=== PATIENT | female | born 1935 | race Caucasian/White ===

== ENCOUNTER → 2023-11-09 09:36 | Outpatient (REF) | payer MEDICARE, SELFPAY ==
[2023-11-09 10:47] LABS: % Basophils 0.3 % (0-2); % Immature Granulocytes 0.3 % (0-0.5); % Lymphocytes 22.9 % (20.5-51.1); % Monocytes 9.4 % (1.7-9.3); % Neutrophils 65.1 % (42.2-75.2); Absolute Eosinophils 0.1 10^3/uL (0-0.7); Absolute Lymphocytes 1.5 10^3/uL (1.2-3.4); Absolute Monocytes 0.6 10^3/uL (0.1-0.6); Absolute Neutrophils 4.3 10^3/uL (1.4-6.5); Hematocrit 32.1 % (37.0-47.0); Hemoglobin 9.6 g/dL (12.0-16.0); Mean Corp Hgb Conc. 29.9 g/dL (33.0-37.0); Mean Corpuscular Hgb 19.6 pg (27.0-31.0); Mean Corpuscular Volume 65.6 fL (81.0-99.0); Nucleated Red Blood Cells % 0 %; Platelet Count 193 10^3/uL (130-400); Red Blood Cell Count 4.89 10^6/uL (4.20-5.40); White Blood Cell Count 6.6 10^3/uL (4.8-10.8)
[2023-11-09 11:52] LABS: ALT (SGPT) 13 U/L (0-35); AST (SGOT) 26 U/L (14-36); Albumin 3.7 g/dl (3.5-5.0); Alkaline Phosphatase 58 U/L (38-126); Blood Urea Nitrogen 26 mg/dl (7-17); Calcium 9.1 mg/dl (8.4-10.2); Carbon Dioxide 22 mmol/L (22-30); Chloride 109 mmol/L (98-107); Glucose 87 mg/dl (70-99); HDL Cholesterol 65 mg/dl; LDL Cholesterol, Calculated 37 mg/dl; Potassium 4.4 mmol/L (3.5-5.1); Sodium 137 mmol/L (135-145); Total Bilirubin 0.8 mg/dl (0.2-1.3); Total Cholesterol 118 mg/dl (50-199); Total Protein 6.5 g/dl (6.3-8.2); Triglyceride 83 mg/dl (10-149); Very Low Density Lipoprotein 16 mg/dl (0-30); eGFR > 60.00
[2023-11-09 11:56] LABS: TSH 4.14 uIU/ml (0.47-4.68)
== END ==
LOC: OLABWPC 09:36
PROVIDERS: ATTENDING PHYSICIAN Internal Medicine
DX: D64.9 Anemia, unspecified (principal); K21.9 Gastro-esophageal reflux disease without esophagitis; E78.5 Hyperlipidemia, unspecified; I50.20 Unspecified systolic (congestive) heart failure
CPT/HCPCS: 36415; 80053; 80061; 84443; 85025

== ENCOUNTER → 2023-12-14 10:16 | Outpatient (REF) | payer MEDICARE, SELFPAY ==
[2023-12-14 10:47] LABS: % Basophils 0.4 % (0-2); % Eosinophils 0.7 % (0-6); % Immature Granulocytes 0.5 % (0-0.5); % Lymphocytes 18.8 % (20.5-51.1); % Monocytes 9.2 % (1.7-9.3); % Neutrophils 70.4 % (42.2-75.2); Absolute Eosinophils 0.1 10^3/uL (0-0.7); Absolute Immature Granulocytes 0.1 10^3/uL (0-0.05); Absolute Lymphocytes 1.9 10^3/uL (1.2-3.4); Absolute Monocytes 0.9 10^3/uL (0.1-0.6); Absolute Neutrophils 7.1 10^3/uL (1.4-6.5); Hematocrit 27.8 % (37.0-47.0); Hemoglobin 8.6 g/dL (12.0-16.0); Mean Corp Hgb Conc. 30.9 g/dL (33.0-37.0); Mean Corpuscular Hgb 19.9 pg (27.0-31.0); Mean Corpuscular Volume 64.2 fL (81.0-99.0); Nucleated Red Blood Cells % 0 %; Platelet Count 245 10^3/uL (130-400); Red Blood Cell Count 4.33 10^6/uL (4.20-5.40); Red Cell Dist. Width 16.3 % (11.5-14.5); White Blood Cell Count 10.1 10^3/uL (4.8-10.8)
[2023-12-14 11:01] LABS: Blood Urea Nitrogen 22 mg/dl (7-17); Calcium 8.8 mg/dl (8.4-10.2); Carbon Dioxide 23 mmol/L (22-30); Chloride 106 mmol/L (98-107); Glucose 73 mg/dl (70-99); Potassium 3.3 mmol/L (3.5-5.1); Sodium 134 mmol/L (135-145); eGFR 36.64
== END ==
LOC: OLABWPC 10:16
PROVIDERS: ATTENDING PHYSICIAN Nurse Practitioner Family
DX: R19.7 Diarrhea, unspecified (principal)
CPT/HCPCS: 36415; 80048; 85025

== ENCOUNTER 2023-12-15 02:52 | Inpatient (IN) | payer MEDICARE, SELFPAY ==
[2023-12-14 23:05] VITALS: BMI 28.3
[2023-12-14 23:07] VITALS: BP 112/59
[2023-12-14 23:23] LABS: % Basophils 0.4 % (0-2); % Eosinophils 0.4 % (0-6); % Immature Granulocytes 0.4 % (0-0.5); % Lymphocytes 16.8 % (20.5-51.1); % Monocytes 8.1 % (1.7-9.3); % Neutrophils 73.9 % (42.2-75.2); Absolute Eosinophils 0.1 10^3/uL (0-0.7); Absolute Immature Granulocytes 0.1 10^3/uL (0-0.05); Absolute Lymphocytes 1.9 10^3/uL (1.2-3.4); Absolute Monocytes 0.9 10^3/uL (0.1-0.6); Absolute Neutrophils 8.3 10^3/uL (1.4-6.5); Hematocrit 29.9 % (37.0-47.0); Hemoglobin 9.7 g/dL (12.0-16.0); Mean Corp Hgb Conc. 32.4 g/dL (33.0-37.0); Mean Corpuscular Hgb 19.9 pg (27.0-31.0); Mean Corpuscular Volume 61.4 fL (81.0-99.0); Nucleated Red Blood Cells % 0 %; Platelet Count 298 10^3/uL (130-400); Red Blood Cell Count 4.87 10^6/uL (4.20-5.40); Red Cell Dist. Width 16.9 % (11.5-14.5); White Blood Cell Count 11.3 10^3/uL (4.8-10.8)
[2023-12-14 23:43] LABS: ALT (SGPT) 18 U/L (0-35); AST (SGOT) 29 U/L (14-36); Albumin 3.4 g/dl (3.5-5.0); Alkaline Phosphatase 91 U/L (38-126); Blood Urea Nitrogen 24 mg/dl (7-17); Calcium 9.1 mg/dl (8.4-10.2); Carbon Dioxide 23 mmol/L (22-30); Chloride 103 mmol/L (98-107); Estimated Creatinine Clearance 26 ml/min; Glucose 104 mg/dl (70-99); Lipase 82 U/L (23-300); Potassium 2.9 mmol/L (3.5-5.1); Sodium 133 mmol/L (135-145); Total Bilirubin 0.8 mg/dl (0.2-1.3); Total Protein 6.3 g/dl (6.3-8.2); eGFR 44.08
[2023-12-15] VITALS (15 sets, daily range): BP systolic 91–133; BP diastolic 39–89; PULSE 65–91; O2SAT 95; BMI 27.2
--- NOTE | 2023-12-15 00:39 | ED.GENMED ---
History of Present Illness
<GARTH Munroe - Last Filed: 12/15/23 05:25>
General
Chief Complaint: Abdominal Symptoms
Source: patient
Time Seen by Provider: 12/15/23 00:30
Travel History
Have you had any contact with someone who has COVID-19?: No
Do you have any symptoms of coronavirus? Fever > 100 degrees, chills, cough, shortness of breath, sore throat, loss of taste or smell, muscle aches, or headache?: No
History of Present Illness
History of Present Illness:
This is an 88 yo female PMH CHF, anemia presenting for diarrhea x 2 days. She arrived by EMS from [place]. She states diarrhea started in the morning before eating and has persisted. Last BM was the morning of 12/13. She denies nausea, vomiting,
hematochezia, chest pain, shortness of breath, fever, chills, dizziness, lightheadedness.
Past History
<GARTH Munroe - Last Filed: 12/15/23 05:25>
Past History
ED Past Medical History: Psychiatric (Depression)
ED Past Surgical History: Orthopedic and Urological; Negative Cardiac
Social History
Tobacco: Former smoker
Alcohol: None
Drug: None
Personal: Single
Living: alone
Employment: Retired
Family History
Family History: CAD; Negative Early CAD
Review of Systems
<GARTH Munroe - Last Filed: 12/15/23 05:25>
Review of Systems
Allergies reviewed?: Yes
EENT: Reports no symptoms
Respiratory: Reports no symptoms
Cardiac: Reports no symptoms
ABD/GI: Reports diarrhea
: Reports no symptoms
Phy Exam
<GARTH Munroe - Last Filed: 12/15/23 05:25>
General Physical Exam
General Presentation: well appearing
General Skin: warm and dry
General Habitus: normal
General Mental: alert
Cardiovascular Exam
Cardiovascular Exam: regular rate/rhythm, no edema, no gallop and no murmur
Pulmonary Exam
Pulmonary Exam: lungs clear
Gastrointestinal Exam
Gastrointestinal Exam: non tender, soft and non distended
Neurological Exam
Neurological Exam: alert and oriented x3
Psychiatric Exam
Psychiatric Exam: normal mood/affect
Course
<GARTH Munroe - Last Filed: 12/15/23 05:25>
Orders/Labs/Results
Orders:
Orders
12/14/23 23:09
Complete Blood Count/With Diff Urgent
Comprehensive Metabolic Panel Urgent
Lipase Urgent
Magnesium Urgent
12/15/23 00:58
STOOL [C difficile Antigen & Toxins] Urgent
ANDREW Source: Feces/Stool
Specimen Description:
Stool Culture Urgent
ANDREW Source: Feces/Stool
Specimen Description:
KCl 40 Meq/0.9%Sodchl 1000 ml [NSS with KCL 40 MEQ] 40 meq in 1,000 ml IV 250 mls/hr
Potassium Chloride [KCl] 40 meq PO NOW STA
12/15/23 01:00
Add On- LAB Urgent
Tests Added?: Mg level
Orthostatic VS- Treatment ONCE
12/15/23 02:15
Magnesium Sulfate 2 Gram/50 ml [Magnesium Sulfate] 2 gram in 50 ml IV NOW
12/15/23 02:23
Admit/Transfer Patient As Directed
Co-Sign Provider:
Level of Care: Inpatient admission
Assign to:: Medical/Surgical
Physician / Group: Ryan
Diagnosis: GERALD
Reason for Hospitalization: GERALD
Expected length of stay greater than two midnights?: Yes
ELOS- Estimated Length of Stay in days: 2
I certify the patient meets the requirements for IP care: Yes
12/15/23 02:24
Code Status As Directed
Resuscitation Status: Do not resuscitate
Based on pt advanced directive or healthcare POA form: Yes
12/15/23 02:26
DNR Bracelet Application ONCE
12/15/23 04:26
Acetaminophen [Tylenol] 650 mg PO Q4HPRN PRN
Lactated Ringers [Lr] 1,000 ml IV 100 mls/hr
Ondansetron Injectable [Zofran] 4 mg IV Q6HPRN PRN
12/15/23 04:26
Stool For WBC Routine
ANDREW Source: Feces/Stool
Specimen Description:
Activity As Directed
Activity Level: Ambulate
With Assistance
Bladder Scan As Directed
Follow Bladder Retention/Intermittent Cath Algorithm?: Yes
PRN if no void in __ hours: 6
Frequency: Per Retention Algorithm
If Bladder Scan Result >: 400
then:: Straight cath
I/O [Intake/ Output] As Directed
Frequency: Per unit guidelines
Orthostatic Vital Signs As Directed
Orthostatic VS Frequency: BID
Pneumatic Compression Sleeves As Directed
Type: Knee high
Straight Cath As Directed
Frequency: Per Retention Algorithm
Additional Instructions: straight cath as needed per acute urinary retention algorithm for 24 hrs
Additional Instructions: for bladder scan greater than 400 mL
Vital Signs As Directed
Frequency: Per unit guidelines
Weight As Directed
Frequency: Daily
Ot Eval And Treat Routine
PT Consult [Pt Eval And Treat] Routine
Activity Level: Ambulate
With Assistance
DX Deep Vein Thrombosis Video Routine
12/15/23 Breakfast
BRAT
Basic Metabolic Panel IN AM
Complete Blood Count/No Diff IN AM
12/15/23 07:00
Potassium Chloride [KCl] 40 meq PO ONCE@0700 ONE
12/15/23 08:00
Aspirin Chewable [Low Strength Aspirin] 81 mg PO DAILY
Carvedilol [Coreg] 12.5 mg PO DAILY
Venlafaxine Extended Release [Effexor Xr] 75 mg PO BID
12/15/23 22:00
Atorvastatin [Lipitor] 40 mg PO HS
Carvedilol [Coreg] 6.25 mg PO HS
Abnormal Lab Results
12/14/23
23:09
WBC 11.3 H 10^3/uL
(4.8-10.8)
Hgb 9.7 L g/dL
(12.0-16.0)
Hct 29.9 L %
(37.0-47.0)
MCV 61.4 L fL
(81.0-99.0)
MCH 19.9 L pg
(27.0-31.0)
MCHC 32.4 L g/dL
(33.0-37.0)
RDW 16.9 H %
(11.5-14.5)
Abs Immat Gran (auto) 0.1 H 10^3/uL
(0-0.05)
Absolute Neuts (auto) 8.3 H 10^3/uL
(1.4-6.5)
Absolute Monos (auto) 0.9 H 10^3/uL
(0.1-0.6)
Lymphocytes % 16.8 L %
(20.5-51.1)
Sodium 133 L mmol/L
(135-145)
Potassium 2.9 L mmol/L
(3.5-5.1)
BUN 24 H mg/dl
(7-17)
Creatinine 1.2 H mg/dL
(0.6-1.0)
Glucose 104 H mg/dl
(70-99)
Albumin 3.4 L g/dl
(3.5-5.0)
12/14/23 23:09
12/14/23 23:09
Vital Signs
Initial and Last Documented VS:
Initial Vital Signs
Temp
98.4 F
12/14/23 23:05
Last Documented Vital Signs
Temp Pulse Resp BP Pulse Ox
97.5 F 75 18 133/70 96
12/15/23 04:37 12/15/23 04:37 12/15/23 04:37 12/15/23 04:37 12/15/23 04:37
<Dolly Mehta, DO - Last Filed: 12/15/23 01:58>
Orders/Labs/Results
Orders:
Orders
12/14/23 23:09
Complete Blood Count/With Diff Urgent
Comprehensive Metabolic Panel Urgent
Lipase Urgent
Magnesium Urgent
12/15/23 00:58
STOOL [C difficile Antigen & Toxins] Urgent
ANDREW Source: Feces/Stool
Specimen Description:
Stool Culture Urgent
ANDREW Source: Feces/Stool
Specimen Description:
KCl 40 Meq/0.9%Sodchl 1000 ml [NSS with KCL 40 MEQ] 40 meq in 1,000 ml IV 250 mls/hr
Potassium Chloride [KCl] 40 meq PO NOW STA
12/15/23 01:00
Add On- LAB Urgent
Tests Added?: Mg level
Orthostatic VS- Treatment ONCE
12/15/23 02:15
Magnesium Sulfate 2 Gram/50 ml [Magnesium Sulfate] 2 gram in 50 ml IV NOW
12/15/23 02:23
Admit/Transfer Patient As Directed
Co-Sign Provider:
Level of Care: Inpatient admission
Assign to:: Medical/Surgical
Physician / Group: Ryan
Diagnosis: GERALD
Reason for Hospitalization: GERALD
Expected length of stay greater than two midnights?: Yes
ELOS- Estimated Length of Stay in days: 2
I certify the patient meets the requirements for IP care: Yes
12/15/23 02:24
Code Status As Directed
Resuscitation Status: Do not resuscitate
Based on pt advanced directive or healthcare POA form: Yes
12/15/23 02:26
DNR Bracelet Application ONCE
12/15/23 04:26
Acetaminophen [Tylenol] 650 mg PO Q4HPRN PRN
Lactated Ringers [Lr] 1,000 ml IV 100 mls/hr
Ondansetron Injectable [Zofran] 4 mg IV Q6HPRN PRN
12/15/23 04:26
Stool For WBC Routine
ANDREW Source: Feces/Stool
Specimen Description:
Activity As Directed
Activity Level: Ambulate
With Assistance
Bladder Scan As Directed
Follow Bladder Retention/Intermittent Cath Algorithm?: Yes
PRN if no void in __ hours: 6
Frequency: Per Retention Algorithm
If Bladder Scan Result >: 400
then:: Straight cath
I/O [Intake/ Output] As Directed
Frequency: Per unit guidelines
Orthostatic Vital Signs As Directed
Orthostatic VS Frequency: BID
Pneumatic Compression Sleeves As Directed
Type: Knee high
Straight Cath As Directed
Frequency: Per Retention Algorithm
Additional Instructions: straight cath as needed per acute urinary retention algorithm for 24 hrs
Additional Instructions: for bladder scan greater than 400 mL
Vital Signs As Directed
Frequency: Per unit guidelines
Weight As Directed
Frequency: Daily
Ot Eval And Treat Routine
PT Consult [Pt Eval And Treat] Routine
Activity Level: Ambulate
With Assistance
DX Deep Vein Thrombosis Video Routine
12/15/23 Breakfast
BRAT
Basic Metabolic Panel IN AM
Complete Blood Count/No Diff IN AM
12/15/23 07:00
Potassium Chloride [KCl] 40 meq PO ONCE@0700 ONE
12/15/23 08:00
Aspirin Chewable [Low Strength Aspirin] 81 mg PO DAILY
Carvedilol [Coreg] 12.5 mg PO DAILY
Venlafaxine Extended Release [Effexor Xr] 75 mg PO BID
12/15/23 22:00
Atorvastatin [Lipitor] 40 mg PO HS
Carvedilol [Coreg] 6.25 mg PO HS
Abnormal Lab Results
12/14/23
23:09
WBC 11.3 H 10^3/uL
(4.8-10.8)
Hgb 9.7 L g/dL
(12.0-16.0)
Hct 29.9 L %
(37.0-47.0)
MCV 61.4 L fL
(81.0-99.0)
MCH 19.9 L pg
(27.0-31.0)
MCHC 32.4 L g/dL
(33.0-37.0)
RDW 16.9 H %
(11.5-14.5)
Abs Immat Gran (auto) 0.1 H 10^3/uL
(0-0.05)
Absolute Neuts (auto) 8.3 H 10^3/uL
(1.4-6.5)
Absolute Monos (auto) 0.9 H 10^3/uL
(0.1-0.6)
Lymphocytes % 16.8 L %
(20.5-51.1)
Sodium 133 L mmol/L
(135-145)
Potassium 2.9 L mmol/L
(3.5-5.1)
BUN 24 H mg/dl
(7-17)
Creatinine 1.2 H mg/dL
(0.6-1.0)
Glucose 104 H mg/dl
(70-99)
Albumin 3.4 L g/dl
(3.5-5.0)
05/08/24 23:09
12/14/23 23:09
Vital Signs
Initial and Last Documented VS:
Initial Vital Signs
Temp
98.4 F
12/14/23 23:05
Last Documented Vital Signs
Temp Pulse Resp BP Pulse Ox
97.5 F 75 18 133/70 96
12/15/23 04:37 12/15/23 04:37 12/15/23 04:37 12/15/23 04:37 12/15/23 04:37
<GARTH Munroe - Last Filed: 12/15/23 05:25>
*Critical Care Note
Total Time (30-74mins, 75-104mins- exclusive of procedures): Not Applicable
ED Attending Note
<GARTH Munroe - Last Filed: 12/15/23 05:25>
-
Portions of this chart may have been created with voice recognition software.� Occasional wrong word or��sound alike� substitutions may have occurred due to the inherent limitations of voice recognition software.
<Dolly Mehta DO - Last Filed: 12/15/23 01:58>
ED Attending Note
Patient seen and examined by attending physician: Yes
I performed the substantive portion of visit, reviewed & personally made and approve the management plan that is documented in note by myself or ELY.: Yes
I performed a history and physical exam of patient and discussed management with resident, I reviewed resident's note and agree with documented findings and plan of care.: Yes
ED Attending Note:
This is an 88-year-old woman who resides in assisted living facility at [facility]. 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
She is sent to the ED with [facility] staff due to onset of nonbloody diarrhea 2 days ago with reported 5 pound weight loss in 2 days along with hypotension with blood pressure recorded at 85/47 and blood work from yesterday morning showing
acute kidney injury with creatinine of 1.4. Previously 0.8 1-month prior.
Patient denies abdominal pain, denies dizziness nor lightheadedness, denies fever nor chills. No known close contacts with similar symptoms. She denies recent antibiotic use nor recent travel.
She denies history of similar episodes in the past. She states her appetite has been fair to good. No nausea nor vomiting.
GENERAL: 88-year-old woman appears her stated age, bright and alert, pleasant, appears in no acute distress.
EYE: pupils equal and reactive. anicteric
NECK: Supple, nontender, no meningismus, no significant adenopathy.
ENT: posterior pharynx is clear, oral mucosa is moderately dry. No rhinorrhea.
CARDIAC: Regular rate and rhythm. no murmur.
LUNGS: Clear breath sounds bilaterally, no acute respiratory distress, no wheezes/rales/rhonchi
ABDOMEN: Soft, nondistended, without focal tenderness, no r/g, no cvat. normoactive BS.
NEUROLOGICAL: Alert and oriented x3, no focal neuro deficits.
SKIN: Warm and dry, normal color, skin intact. Fair turgor. No rash.
MUSCULOSKELETAL: No C/C/E. peripheral pulses are full and equal b/l. No palpable tenderness.
PSYCH: Normal and appropriate interaction.
Patient presents with 2-day history of nonbloody diarrhea. Clinically appears moderately dehydrated with borderline low blood pressure.
Labs show mildly elevated white blood cell count of 11.3, mild but stable anemia.
Significant dehydration with acute kidney injury with creatinine of 1.2, has improved mildly from outpatient labs this morning of 1.4 but markedly elevated compared to baseline creatinine of 0.8.
She also noted to have significant hypokalemia with potassium of 2.9 which has trended down from this morning.
She denies dizziness nor lightheadedness but half-way reports blood pressure of 85 systolic. Will check orthostatic vital signs.
Will initiate IV fluids along with IV potassium for repletion along with oral potassium repletion.
If diarrhea recurs we will check stool cultures and stool for C. difficile.
Will check magnesium level.
Abdominal exam is soft and benign. And she continues to deny abdominal pain. Nothing to suggest ischemic bowel nor significant colitis.
Due to acute kidney injury, hypokalemia, acute weight loss and significant dehydration patient will require acute hospitalization for fluid and electrolyte management.
Discharge Plan
Departure
Patient Disposition: Admit
Date of Disposition: 12/15/23
Time of Disposition: 01:57
Admit to: Med/Surg
Admit to doctor: Ryan
Presentation/result/management discussed w/ accepting MD/DO: Hospitalist
Condition: Fair
Discharge Problem:
Acute diarrhea, acute kidney injury due to dehydration, Acute hypokalemia
Interventions
Interventions:
*Risk Screen - Suicide Last Done: 12/15/23 04:42
*General Assessment Last Done: 12/14/23 23:07
*Neglect/Abuse Screening Last Done: 12/14/23 23:07
ED- Fall Risk Assessment Last Done: 12/14/23 23:27
*ED COVID-19 Vaccine History Last Done: 12/15/23 04:42
*Nursing Disposition Last Done: 12/15/23 04:13
HE-Wruzvm-Bzhuwarrxu Assessment Last Done: 12/14/23 23:27
Discharge Date and Time
Discharge Date/Time: 12/15/23 04:14
[2023-12-15] MEDS: KCL 40 MEQ PO ×2 (01:05→06:05)
[2023-12-15] MEDS: NSS with KCL 40 MEQ 1000 IV (01:16)
[2023-12-15 01:31] LABS: Magnesium 1.6 mg/dl (1.6-2.3)
--- NOTE | 2023-12-15 02:27 | HPS.HSE ---
Family Physician
-
Family Physician: Sherie Jefferson
Chief Complaint
-
Abnormal Labs, Low BP, Loose Stools
History of Present Illness
Patient is an 88y F with PMH significant for ASCVD, chronic anemia and mild dementia who presents to ED for evaluation of weight loss, hypotension and abnormal labs. History obtained from patient and DE report. Per DE record, patient has had
diarrhea with multiple loose stools for the past several days. She has lost 5 lbs in that time and her BP this evening was reportedly in the 80s systolic. Patient had labs done earlier today as an outpatient and these revealed hypokalemia and GERALD.
Patient was sent to the ED for further evaluation.
Patient is currently resting comfortably. She denies any abdominal pain, N/V, etc. She states that she had diarrhea - but notes that it has been better for the past 'couple of days'. Her last BM was reportedly in the AM on 12/13.
Medical History
Past Medical History
Past Medical History: Reports Other
Additional Past Medical History:
ASCVD
Chronic HFrEF
Nephrolithiasis
Thalassemia Minor
Chronic Anemia
Senile Dementia
Past Surgical History: Reports Other
Additional Past Surgical History:
Bilateral RACHEAL
Cholecystectomy
Social History
Tobacco: Non-smoker
Alcohol: None
Drug: None
Living: Assisted Living
Family History
Family History: Not pertinent
Allergies / Home Medications
Allergies reflects when Allergies were last updated in [employer].
Home Medications with original date entered in [employer]
Allergy/Medication List:
Allergies
Allergy/AdvReac Type Severity Reaction Status Date / Time
amoxicillin [From Augmentin] Allergy Unknown Verified 04/15/20 11:52
clavulanic acid Allergy Unknown Verified 04/15/20 11:52
[From Augmentin]
Iodine and Iodide Containing Allergy Unknown Verified 09/08/20 11:52
Produc
Home Medications
venlafaxine 75 mg capsule,extended release 24 hr 75 mg PO BID Mental Health/Anxiety 01/16/19
pantoprazole 40 mg tablet,delayed release 40 mg PO HS Gastrointestinal issue 04/11/20
aspirin 81 mg chewable tablet 81 mg PO DAILY 04/19/20
acetaminophen 500 mg tablet 1,000 mg PO Q8H PRN mild pain/temp>100 12/14/23
atorvastatin 40 mg tablet 40 mg PO HS 12/14/23
calcium carbonate 500 mg PO Q6H PRN nausea 12/14/23
carvedilol 6.25 mg tablet 6.25 mg PO HS 12/14/23
carvedilol 6.25 mg tablet 12.5 mg PO DAILY 12/14/23
cyanocobalamin (vitamin B-12) 500 mcg tablet 1,000 mcg PO DAILY 12/14/23
dextran 70-hypromellose eye drops in a dropperette (Artificial Tears (PF) drops in a dropperette) 1 drp BOTH EYES BID PRN dry eyes 12/14/23
docusate sodium 100 mg capsule 100 mg PO Q12H PRN constipation 12/14/23
ferrous sulfate 325 mg (65 mg iron) tablet 325 mg PO DAILY 12/14/23
guaifenesin 600 mg tablet, extended release 12 hr (Mucinex) 600 mg PO Q12H PRN congestion 12/14/23
melatonin 3 mg tablet 3 mg PO HS 12/14/23
Review of Systems
-
History Source: Patient
A 12 point ROS was completed and negative except as noted: Yes
Constitutional: Denies Fever or Chills
Respiratory: Denies Cough or Trouble Breathing
Cardiac: Denies Chest Pain or Palpitations
Abdomen/GI: Reports Diarrhea; Denies Abdominal Pain, Nausea, Vomiting or Anorexia
: Denies Dysuria, Frequency or Flank Pain
Musculoskeletal: Reports Edema
Neurological: Denies Dizzy or Headache
Physical Exam
Vital Signs
Vital Signs
Temp Pulse Resp BP Pulse Ox
98.4 F 74 22 120/54 94
12/14/23 23:05 12/15/23 02:01 12/15/23 02:01 12/15/23 02:01 12/15/23 02:01
Physical Exam
General: Other (88y F in no acute distress.)
HEENT: PERRLA and Other (Dry MM.)
Respiratory: Clear; No Wheezes, Rales or Rhonchi
Cardiac: S1/S2 and Regular Rhythm; No Murmur
GI: Soft, Non Tender, Non Distended and Normal Bowel Sounds
Musculoskeletal: No Clubbing, No Cyanosis and Other (1+ pitting edema at the ankles bilaterally.)
Neuro: Awake and Alert
Laboratory Results
-
12/14/23 23:09
12/14/23 23:09
Laboratory Results
Total Bilirubin 0.8 mg/dl (0.2-1.3) 12/14/23 23:09
AST 29 U/L (14-36) 12/14/23 23:09
ALT 18 U/L (0-35) 12/14/23 23:09
Alkaline Phosphatase 91 U/L (38-126) 12/14/23 23:09
Lipase 82 U/L (23-300) 12/14/23 23:09
Impression/Plan
-
A/P: Patient is an 88y F with PMH significant for ASCVD, dementia and anemia who presents to ED from assisted living this evening for evaluation of hypotension, diarrhea and abnormal labs.
GERALD
Hypokalemia
Hypotension
- Admit for further evaluation and treatment.
- Suspect that this is secondary to recent GI losses, BP meds, etc.
- Holding parameters for carvedilol.
- IVF support overnight including potassium replacement.
- IV magnesium for goal Mg > 2.
- SCr = 1.2 (1.4 on outpatient labs this AM) with known baseline of 0.8.
- Follow for improvement.
Diarrhea
- Patient with multiple loose stools 6 - 12/13.
- She states that this has improved since and she has not had continued diarrhea throughout the day.
- No stools here thus far.
- No recent abx use.
- Check stool studies (if possible).
- Observe off of abx for now.
- Exam is entirely benign at present.
ASCVD
Chronic HFrEF
- Stable. Prior history of CAD treated medically.
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
- Not maintained on diuretic therapy.
- Follow I/Os, daily weights, etc.
- Continue current CV regimen including ASA, statin, etc.
Chronic Microcytic Anemia
Thalassemia minor
- Stable. Hgb is at / near known baseline.
- No reports of active / noted blood loss.
- Microcytosis c/w thalassemia.
- Follow for any changes in H&H.
Senile Dementia
- Stable. Follow for any new / worsening symptoms during acute hospital stay.
- Continue venlafaxine.
DVT Prophylaxis: SCDs
Code Status: DNR
[2023-12-15] MEDS: MAGNESIUM SULFATE 50 IV (03:32)
--- NOTE | 2023-12-15 04:45 | PTCARENOTE ---
Patient admitted from ED. Patient AAO x2, disoriented to time and can be forgetful at times. Bed alarm is activated. Patient on RA, in no acute distress. Patient oriented to room and call du is within reach.
[2023-12-15] MEDS: LR 1000 IV ×2 (06:23→14:36)
[2023-12-15 07:11] LABS: Hematocrit 26.7 % (37.0-47.0); Hemoglobin 8.5 g/dL (12.0-16.0); Mean Corp Hgb Conc. 31.8 g/dL (33.0-37.0); Mean Corpuscular Volume 62.8 fL (81.0-99.0); Platelet Count 260 10^3/uL (130-400); Red Blood Cell Count 4.25 10^6/uL (4.20-5.40); Red Cell Dist. Width 16.7 % (11.5-14.5); White Blood Cell Count 11.4 10^3/uL (4.8-10.8)
[2023-12-15 07:34] LABS: Blood Urea Nitrogen 22 mg/dl (7-17); Calcium 8.8 mg/dl (8.4-10.2); Carbon Dioxide 20 mmol/L (22-30); Chloride 111 mmol/L (98-107); Estimated Creatinine Clearance 31 ml/min; Glucose 84 mg/dl (70-99); Potassium 4.4 mmol/L (3.5-5.1); Sodium 138 mmol/L (135-145); eGFR 54.87
[2023-12-15] MEDS: LOW STRENGTH ASPIRIN 81 MG PO (07:53)
[2023-12-15] MEDS: COREG 12.5 MG PO (07:53)
[2023-12-15] MEDS: EFFEXOR XR 75 MG PO ×2 (07:53→21:30)
--- NOTE | 2023-12-15 10:59 | W.PN.UPDATE ---
Update Note
Progress Note Update
Seen and examined independent of overnight physician
Resting in bed comfortably. Denies any abdominal pain or diarrhea. Denies any nausea or vomiting.
General: Resting in bed
HEENT: PERRLA and Other (Dry MM.)
Respiratory: Clear; No Wheezes, Rales or Rhonchi
Cardiac: S1/S2 and Regular Rhythm; No Murmur
GI: Soft, Non Tender, Non Distended and Normal Bowel Sounds
Musculoskeletal: No Clubbing, No Cyanosis and Other (1+ pitting edema at the ankles bilaterally.)
Neuro: Awake and Alert
A/P: Patient is an 88y F with PMH significant for ASCVD, dementia and anemia who presents to ED from assisted living this evening for evaluation of hypotension, diarrhea and abnormal labs.
GERALD
Hypokalemia
Hypotension
Mild hypovolemic hyponatremia
- Suspect that this is secondary to recent GI losses, BP meds, etc.
- Holding parameters for carvedilol.
- IVF support overnight including potassium replacement.
- IV magnesium for goal Mg > 2.
- Creatinine of 1 compared to 1.4 yesterday morning. DC fluids later today.
- Follow for improvement. Potassium stabilized. Sodium stabilized.
Diarrhea
- Patient with multiple loose stools 5/6 - 12/13.
- She states that this has improved since and she has not had continued diarrhea throughout the day.
- No stools here thus far.
- No recent abx use.
- Check stool studies (if possible).
- Observe off of abx for now.
ASCVD
Chronic HFrEF
- Stable. Prior history of CAD treated medically.
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
- Not maintained on diuretic therapy.
- Follow I/Os, daily weights, etc.
- Continue current CV regimen including ASA, statin, etc.
Chronic Microcytic Anemia
Thalassemia minor
- Stable. Hgb is at / near known baseline.
- No reports of active / noted blood loss.
- Microcytosis c/w thalassemia.
- Follow for any changes in H&H.
Senile Dementia
- Stable. Follow for any new / worsening symptoms during acute hospital stay.
- Continue venlafaxine.
DVT Prophylaxis: SCDs
Code Status: DNR
--- NOTE | 2023-12-15 14:47 | CM ---
Patient seen bedside, chart reviewed and IA from Kailyn at [facility] unit.
Patient lives at [facility], has some confusion and not a good historian.
Patient able to ambulate independently but mostly stays in bed by choice.
patient eats her meals in her room.
Patient can wash/shower herself but has been resisting help.
Not currently getting therapy.
PCP: Dr Jefferson
Pharmacy: [facility]
Please contact Kailyn at [facility] to clear for return P# [phone]
Plan: Back to [facility] whens table
report# [phone]
[2023-12-15] MEDS: COREG 6.25 MG PO (21:30)
[2023-12-15] MEDS: LIPITOR 40 MG PO (21:30)
[2023-12-16 06:00] VITALS: BMI 27.7
[2023-12-16 07:39] VITALS: BP 121/65; BP 124/64; BP 141/67; PULSE 68; PULSE 69; PULSE 78
[2023-12-16 07:40] VITALS: BP 121/65
[2023-12-16] MEDS: EFFEXOR XR 75 MG PO ×2 (09:17→21:13)
[2023-12-16] MEDS: COREG 12.5 MG PO (09:17)
[2023-12-16] MEDS: LOW STRENGTH ASPIRIN 81 MG PO (09:17)
[2023-12-16 09:39] LABS: % Basophils 0.3 % (0-2); % Eosinophils 1.2 % (0-6); % Immature Granulocytes 0.5 % (0-0.5); % Monocytes 9.6 % (1.7-9.3); % Neutrophils 70.4 % (42.2-75.2); Absolute Eosinophils 0.1 10^3/uL (0-0.7); Absolute Lymphocytes 1.1 10^3/uL (1.2-3.4); Absolute Monocytes 0.6 10^3/uL (0.1-0.6); Absolute Neutrophils 4.3 10^3/uL (1.4-6.5); Hematocrit 25.3 % (37.0-47.0); Hemoglobin 7.8 g/dL (12.0-16.0); Mean Corp Hgb Conc. 30.8 g/dL (33.0-37.0); Mean Corpuscular Hgb 19.5 pg (27.0-31.0); Mean Corpuscular Volume 63.4 fL (81.0-99.0); Nucleated Red Blood Cells % 0 %; Platelet Count 233 10^3/uL (130-400); Red Blood Cell Count 3.99 10^6/uL (4.20-5.40); Red Cell Dist. Width 16.6 % (11.5-14.5); White Blood Cell Count 6.1 10^3/uL (4.8-10.8)
[2023-12-16 09:50] LABS: Blood Urea Nitrogen 14 mg/dl (7-17); Calcium 8.3 mg/dl (8.4-10.2); Carbon Dioxide 24 mmol/L (22-30); Chloride 113 mmol/L (98-107); Estimated Creatinine Clearance 44 ml/min; Glucose 73 mg/dl (70-99); Potassium 4.5 mmol/L (3.5-5.1); Sodium 137 mmol/L (135-145); eGFR > 60.00
--- NOTE | 2023-12-16 12:00 | W.PN.HOSP.TC ---
Addendum entered and electronically signed by Chaitanya Yoon MD 12/16/23 12:18:
Discussed with son over the phone in detail. Updated hospital course so far.
Original Note:
Today's Communication/Plan
-
DC fluids
Monitor for diet tolerance
Upgrade diet
Trend CBC
Check anemia panel
Assessment / Plan
Assessment / Plan
GERALD
Hypokalemia
Hypotension
Mild hypovolemic hyponatremia
- Suspect that this is secondary to recent GI losses, BP meds, etc.
- Holding parameters for carvedilol.
- IV magnesium for goal Mg > 2.
- Creatinine at baseline. Stop IVF.
- Follow for improvement. Potassium stabilized. Sodium stabilized.
Diarrhea likely viral
- Patient with multiple loose stools 12/11 - 12/13. Resolved.
- She states that this has improved since and she has not had continued diarrhea throughout the day.
- 1 solid bm earlier today.
- No recent abx use.
- Observe off of abx for now.
ASCVD
Chronic HFrEF
- Stable. Prior history of CAD treated medically.
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
- Not maintained on diuretic therapy.
- Follow I/Os, daily weights, etc.
- Continue current CV regimen including ASA, statin, etc.
Chronic Microcytic Anemia
Thalassemia minor
- Mild drop in hemoglobin secondary to dilution from IV fluids.
- No reports of active / noted blood loss.
- Microcytosis c/w thalassemia.
- Follow for any changes in H&H. Check anemia panel.
Senile Dementia
- Stable. Follow for any new / worsening symptoms during acute hospital stay.
- Continue venlafaxine.
DVT Prophylaxis: SCDs
Code Status: DNR
PT/OT-home health.
Called son to update. No Response. left voicemail.
Anticipated Discharge: Within 24 hours
Subjective/Interval History
-
Date of Service: December 16, 2023
states had 1 solid bm earlier today
no loose bm yesterday
tolerating diet
no nausea or vomiting or abd pain
Objective Data
-
Labs:
Laboratory Results
12/16/23
08:46
WBC 6.1
Hgb 7.8 L
Hct 25.3 L
Plt Count 233
Sodium 137
Potassium 4.5
Chloride 113 H
Carbon Dioxide 24
BUN 14
Creatinine 0.7
Glucose 73
Calcium 8.3 L
Vital Signs:
Vital Signs
Temp Pulse Resp BP Pulse Ox
97.7 F 68 17 121/65 98
12/16/23 07:40 12/16/23 09:17 12/16/23 07:40 12/16/23 09:17 12/16/23 08:18
I&O
12/15/23 12/16/23 12/17/23
06:59 06:59 06:59
Intake Total 240 / 240 1140 / 1140
Balance 240 / 240 1140 / 1140
Physical Exam
-
General: Well Developed and No Apparent Distress
HEENT: Normocephalic, Atraumatic and Moist Mucous Membranes
Respiratory: Clear to Auscultation
Cardiac: Regular Rhythm and S1/S2; Negative Murmur, Rub or Gallop
GI: Soft, Nontender, Nondistended and Normal Bowel Sounds; Negative Organomegaly
Rectal: Deferred by Provider
Musculoskeletal: No Clubbing, No Cyanosis and No Edema
Skin: Negative Rash
Neuro: Awake, No Motor Deficits and Nonfocal/Grossly Intact
Psych: Calm
Data Reviewed
-
Total Time Spent with Patient (in minutes): 55
[2023-12-16 12:48] VITALS: BP 141/59; PULSE 64; O2SAT 94
[2023-12-16 12:48] LABS: Iron 59 ug/dl (37-170)
[2023-12-16 12:57] LABS: Percent Saturation 49 % (20-50); Total Iron Binding Capacity 120 ug/dl (265-497)
[2023-12-16 14:12] LABS: Folate 4.5 ng/ml (2.76-20); Vitamin B12 > 1000 pg/ml (239-931)
[2023-12-16 15:52] VITALS: BP 145/62
[2023-12-16 20:09] VITALS: BP 102/55; BP 120/57; BP 140/81; PULSE 70; PULSE 76; PULSE 88
[2023-12-16] MEDS: LIPITOR 40 MG PO (21:13)
[2023-12-16] MEDS: MELATONIN 3 MG PO (21:13)
[2023-12-16] MEDS: COREG 6.25 MG PO (21:13)
[2023-12-16 23:54] VITALS: BP 103/54
[2023-12-17 05:52] VITALS: BMI 27.6
[2023-12-17 07:00] VITALS: BP 114/67; BP 125/54; BP 130/65; PULSE 63; PULSE 77; PULSE 95
[2023-12-17 07:59] VITALS: BP 125/54
[2023-12-17 08:21] LABS: % Basophils 0.3 % (0-2); % Immature Granulocytes 0.5 % (0-0.5); % Lymphocytes 20.7 % (20.5-51.1); % Monocytes 9.7 % (1.7-9.3); % Neutrophils 67.8 % (42.2-75.2); Absolute Eosinophils 0.1 10^3/uL (0-0.7); Absolute Lymphocytes 1.2 10^3/uL (1.2-3.4); Absolute Monocytes 0.6 10^3/uL (0.1-0.6); Hemoglobin 8.1 g/dL (12.0-16.0); Mean Corp Hgb Conc. 31.2 g/dL (33.0-37.0); Mean Corpuscular Hgb 19.8 pg (27.0-31.0); Mean Corpuscular Volume 63.6 fL (81.0-99.0); Nucleated Red Blood Cells % 0 %; Platelet Count 234 10^3/uL (130-400); Red Blood Cell Count 4.09 10^6/uL (4.20-5.40); Red Cell Dist. Width 16.5 % (11.5-14.5); White Blood Cell Count 5.9 10^3/uL (4.8-10.8)
[2023-12-17 08:52] LABS: Blood Urea Nitrogen 10 mg/dl (7-17); Calcium 8.5 mg/dl (8.4-10.2); Carbon Dioxide 21 mmol/L (22-30); Chloride 112 mmol/L (98-107); Estimated Creatinine Clearance 52 ml/min; Glucose 75 mg/dl (70-99); Potassium 4.1 mmol/L (3.5-5.1); Sodium 139 mmol/L (135-145); eGFR > 60.00
[2023-12-17] MEDS: LOW STRENGTH ASPIRIN 81 MG PO (09:03)
[2023-12-17] MEDS: EFFEXOR XR 75 MG PO ×2 (09:03→21:48)
[2023-12-17] MEDS: VITAMIN B-12 1000 MCG PO (09:04)
[2023-12-17] MEDS: PROTONIX 40 MG PO (09:04)
[2023-12-17] MEDS: FOLVITE 1 MG PO (09:04)
[2023-12-17] MEDS: COREG 12.5 MG PO (09:04)
--- NOTE | 2023-12-17 12:04 | W.PN.HOSP.TC ---
Today's Communication/Plan
-
Trend hemoglobin overnight
Monitor for any luminal bleeding-none noted so far
Monitor diet tolerance
Start Dispo planning
Assessment / Plan
Assessment / Plan
GERALD
Hypokalemia
Hypotension
Mild hypovolemic hyponatremia
- Suspect that this is secondary to recent GI losses, BP meds, etc.
- Holding parameters for carvedilol.
- Creatinine at baseline. Stop IVF.
- Follow for improvement. Potassium stabilized. Sodium stabilized.
Diarrhea likely viral
- Patient with multiple loose stools 12/11 - 12/13. Resolved.
- awaiting for stools sample
- No recent abx use.
- Observe off of abx for now.
ASCVD
Chronic HFrEF
- Stable. Prior history of CAD treated medically.
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
- Not maintained on diuretic therapy.
- Follow I/Os, daily weights, etc.
- Continue current CV regimen including ASA, statin, etc.
Chronic Microcytic Anemia
Thalassemia minor
- Mild drop in hemoglobin secondary to dilution from IV fluids.
- No reports of active / noted blood loss.
- Microcytosis c/w thalassemia.
- Follow for any changes in H&H. Appropriate iron stores. Start folic acid. Trend hemoglobin
Senile Dementia
- Stable. Follow for any new / worsening symptoms during acute hospital stay.
- Continue venlafaxine.
DVT Prophylaxis: SCDs
Code Status: DNR
PT/OT-home health.
Anticipated Discharge: Within 24 hours
Subjective/Interval History
-
Date of Service: December 17, 2023
About to eat breakfast
no nausea or vomiting
Objective Data
-
Labs:
Laboratory Results
12/17/23
06:31
WBC 5.9
Hgb 8.1 L
Hct 26.0 L
Plt Count 234
Sodium 139
Potassium 4.1
Chloride 112 H
Carbon Dioxide 21 L
BUN 10
Creatinine 0.6
Glucose 75
Calcium 8.5
Vital Signs:
Vital Signs
Temp Pulse Resp BP Pulse Ox
98 F 61 18 125/54 95
12/17/23 07:59 12/17/23 09:04 12/17/23 07:59 12/17/23 09:04 12/17/23 08:13
I&O
12/16/23 12/17/23 12/18/23
06:59 06:59 06:59
Intake Total 1140 / 1140 660 / 660
Balance 1140 / 1140 660 / 660
Physical Exam
-
General: Well Developed, No Apparent Distress and Other (looks pale)
HEENT: Normocephalic, Atraumatic and Moist Mucous Membranes
Respiratory: Clear to Auscultation
Cardiac: Regular Rhythm and S1/S2; Negative Murmur, Rub or Gallop
GI: Soft, Nontender, Nondistended and Normal Bowel Sounds; Negative Organomegaly
Rectal: Deferred by Provider
Musculoskeletal: No Clubbing, No Cyanosis and No Edema
Skin: Negative Rash
Neuro: Awake, No Motor Deficits and Nonfocal/Grossly Intact
Psych: Calm
[2023-12-17 15:45] VITALS: BP 123/55
[2023-12-17] MEDS: LIPITOR 40 MG PO (21:48)
[2023-12-17] MEDS: MELATONIN 3 MG PO (21:48)
[2023-12-17] MEDS: COREG 6.25 MG PO (21:51)
[2023-12-17 23:46] VITALS: BP 117/80
[2023-12-18 06:44] LABS: % Basophils 0.5 % (0-2); % Eosinophils 0.9 % (0-6); % Immature Granulocytes 0.4 % (0-0.5); % Lymphocytes 17.4 % (20.5-51.1); % Monocytes 10.2 % (1.7-9.3); % Neutrophils 70.6 % (42.2-75.2); Absolute Eosinophils 0.1 10^3/uL (0-0.7); Absolute Lymphocytes 1.3 10^3/uL (1.2-3.4); Absolute Monocytes 0.8 10^3/uL (0.1-0.6); Absolute Neutrophils 5.3 10^3/uL (1.4-6.5); Hematocrit 26.1 % (37.0-47.0); Hemoglobin 8.3 g/dL (12.0-16.0); Mean Corp Hgb Conc. 31.8 g/dL (33.0-37.0); Mean Corpuscular Volume 62.7 fL (81.0-99.0); Mean Platelet Volume 11.5 fL (7.4-10.4); Nucleated Red Blood Cells % 0 %; Platelet Count 237 10^3/uL (130-400); Red Blood Cell Count 4.16 10^6/uL (4.20-5.40); Red Cell Dist. Width 16.8 % (11.5-14.5); White Blood Cell Count 7.5 10^3/uL (4.8-10.8)
[2023-12-18 07:26] VITALS: BP 122/61; BP 124/52; BP 138/67; PULSE 68; PULSE 71; PULSE 79
[2023-12-18 07:27] VITALS: BP 124/52
[2023-12-18] MEDS: LOW STRENGTH ASPIRIN 81 MG PO (10:19)
[2023-12-18] MEDS: EFFEXOR XR 75 MG PO ×2 (10:19→20:15)
[2023-12-18] MEDS: FOLVITE 1 MG PO (10:20)
[2023-12-18] MEDS: VITAMIN B-12 1000 MCG PO (10:20)
[2023-12-18] MEDS: PROTONIX 40 MG PO (10:20)
[2023-12-18] MEDS: COREG 12.5 MG PO (10:20)
--- NOTE | 2023-12-18 11:37 | W.PN.HOSP.TC ---
Today's Communication/Plan
-
dc to [facility]
Assessment / Plan
Assessment / Plan
GERALD
Hypokalemia
Hypotension
Mild hypovolemic hyponatremia
- Suspect that this is secondary to recent GI losses, BP meds, etc.
- Holding parameters for carvedilol.
- Creatinine at baseline. Stop IVF.
- Follow for improvement. Potassium stabilized. Sodium stabilized. Cr stabilized.
Diarrhea likely viral
- Patient with multiple loose stools 12/11 - 12/13. Resolved.
-Loose bowel movement resolved and now with solid BMs.
- No recent abx use.
- Observe off of abx for now.
ASCVD
Chronic HFrEF
- Stable. Prior history of CAD treated medically.
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
- Not maintained on diuretic therapy.
- Follow I/Os, daily weights, etc.
- Continue current CV regimen including ASA, statin, etc.
Chronic Microcytic Anemia
Thalassemia minor
- Mild drop in hemoglobin secondary to dilution from IV fluids.
- No reports of active / noted blood loss.
- Microcytosis c/w thalassemia.
- Follow for any changes in H&H. Appropriate iron stores. Start folic acid. Trend hemoglobin hemoglobin uptrending.
Senile Dementia
- Stable. Follow for any new / worsening symptoms during acute hospital stay.
- Continue venlafaxine.
DVT Prophylaxis: SCDs
Code Status: DNR
PT/OT-home health.
Updated son over the phone in detail. Agreed with discharge planning back to [facility].
More than 30 minutes spent in discharge including
Final examination of the patient
Summarizing hospital stay
Instructions for continuing care to all relevant caregivers
Preparation of discharge records, prescriptions, and referral forms
Total time spent (in minutes): 45
Anticipated Discharge: Today
Subjective/Interval History
-
Date of Service: December 18, 2023
Patient tolerating diet
Denies any nausea vomiting or diarrhea
Having solid bowel movements.
Objective Data
-
Labs:
Laboratory Results
12/18/23
06:23
WBC 7.5
Hgb 8.3 L
Hct 26.1 L
Plt Count 237
Vital Signs:
Vital Signs
Temp Pulse Resp BP Pulse Ox
99.1 F 68 19 124/52 99
12/17/23 23:46 12/18/23 10:20 12/17/23 23:46 12/18/23 10:20 12/17/23 23:46
I&O
12/17/23 12/18/23 12/19/23
06:59 06:59 06:59
Intake Total 660 / 660 240 / 240
Balance 660 / 660 240 / 240
Physical Exam
-
General: Well Developed and No Apparent Distress
HEENT: Normocephalic, Atraumatic and Moist Mucous Membranes
Respiratory: Clear to Auscultation
Cardiac: Regular Rhythm and S1/S2; Negative Murmur, Rub or Gallop
GI: Soft, Nontender, Nondistended and Normal Bowel Sounds; Negative Organomegaly
Rectal: Deferred by Provider
Musculoskeletal: No Clubbing, No Cyanosis and No Edema
Skin: Negative Rash
Neuro: Awake, No Motor Deficits and Nonfocal/Grossly Intact
Psych: Calm
[2023-12-18 12:27] VITALS: BP 124/52
[2023-12-18 15:28] VITALS: BP 131/69
--- NOTE | 2023-12-18 16:54 | CM ---
Patient from [facility] with Dx GERALD, Hypokalemia, Hypotension, hypovolemic hyponatremia, Diarrhea likely viral. PT & OT recommend HH.
Spoke with Matteo Nichole [facility] (ph [phone]); they are unable to accept the patient back today as there is no nurse on duty today. She requests call to [facility] on Tuesday to confirm patient's return. They will be able to accept
her tomorrow and are asking for a script for PT/OT (for their in-house therapy).
Spoke with patient's son Carlos; he is hoping patient can be sent back to [place] tomorrow with their van transport, otherwise he agrees to pay privately for w/c van transport. He is aware a script request will be sent to [place] for their in-house
PT/OT.
Plan call [facility] tomorrow to confirm acceptance to return.
Plan d/c to [facility] tomorrow with script for PT/OT, by [facility] van transport vs w/c van transport.
[2023-12-18 19:50] VITALS: BP 110/61; BP 114/53; BP 114/61; PULSE 71; PULSE 81; PULSE 85
[2023-12-18 22:18] VITALS: BP 113/48
[2023-12-18] MEDS: COREG 6.25 MG PO (22:18)
[2023-12-18] MEDS: LIPITOR 40 MG PO (22:19)
[2023-12-18] MEDS: MELATONIN 3 MG PO (22:19)
[2023-12-19 06:00] VITALS: BMI 27.6
[2023-12-19 07:30] VITALS: BP 133/62
[2023-12-19] MEDS: EFFEXOR XR 75 MG PO (09:12)
[2023-12-19] MEDS: FOLVITE 1 MG PO (09:12)
[2023-12-19] MEDS: LOW STRENGTH ASPIRIN 81 MG PO (09:12)
[2023-12-19] MEDS: COREG 12.5 MG PO (09:12)
[2023-12-19] MEDS: VITAMIN B-12 1000 MCG PO (09:12)
[2023-12-19] MEDS: PROTONIX 40 MG PO (09:12)
--- NOTE | 2023-12-19 09:23 | W.PN.HOSP.TC ---
Today's Communication/Plan
-
Discharge
Assessment / Plan
Assessment / Plan
Gen-awake, alert, NAD, obese
HEENT-NC, AT, anicteric, clear oral mm
Neck-supple
CV-reg, no M, +S1/S2
Lungs-clear B/L
Abd-soft, NT, ND
Ext-no edema
Musculoskeletal-no cyanosis, clubbing
Skin-warm and dry
Neuro-grossly non-focal
Psych-calm, cooperative
GERALD -resolved.
Hypokalemia
Hypotension
Mild hypovolemic hyponatremia
- Suspect that this is secondary to recent GI losses, BP meds, etc.
- Holding parameters for carvedilol.
- Creatinine at baseline. Stop IVF.
- Follow for improvement. Potassium stabilized. Sodium stabilized. Cr stabilized.
Diarrhea likely viral
- Patient with multiple loose stools 12/11 - 12/13. Resolved.
-Loose bowel movement resolved and now with solid BMs.
- No recent abx use.
- Observe off of abx for now.
ASCVD
Chronic HFrEF
- Stable. Prior history of CAD treated medically.
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
- Not maintained on diuretic therapy.
- Follow I/Os, daily weights, etc.
- Continue current CV regimen including ASA, statin, etc.
Chronic Microcytic Anemia
Thalassemia minor
- Mild drop in hemoglobin secondary to dilution from IV fluids.
- No reports of active / noted blood loss.
- Microcytosis c/w thalassemia.
- Follow for any changes in H&H. Appropriate iron stores. Start folic acid. Trend hemoglobin hemoglobin uptrending.
Senile Dementia
- Stable. Follow for any new / worsening symptoms during acute hospital stay.
- Continue venlafaxine.
DVT Prophylaxis: SCDs
Code Status: DNR
Dispo -medically stable for discharge to [place] today. Case management aware.
Anticipated Discharge: Today
Subjective/Interval History
-
Date of Service: December 19, 2023
Patient seen and examined. No complaints.
Objective Data
-
Vital Signs:
Vital Signs
Temp Pulse Resp BP Pulse Ox
97.7 F 62 18 133/62 95
12/19/23 07:30 12/19/23 07:30 12/19/23 07:30 12/19/23 07:30 12/19/23 07:30
I&O
12/18/23 12/19/23 12/20/23
06:59 06:59 06:59
Intake Total 720 / 720
Balance 720 / 720
Review of Systems
-
History Source: Patient
All other systems: Reviewed and negative
--- NOTE | 2023-12-19 09:24 | W.DS.TRANS ---
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
-
Discharge Instructions:
Sleep Apnea Risk Low
Discharge Diagnosis/Procedures Acute kidney injury
Hypokalemia
Hypotension
Mild hypovolemic hyponatremia
Diarrhea likely viral
Diet 2 Gram Sodium,Restrict fluids to 48 oz
Activity With assistance,As tolerated
Driving Restrictions No driving
Blood Work CBC in 1 week via primary doctor.
Instructions:
Stand-Alone Forms:
Changes to Home Medications: No
Discharge Medications:
DC Medications w/original date entered in [facility]
venlafaxine 75 mg capsule,extended release 24 hr 75 mg PO BID Mental Health/Anxiety 01/16/19
pantoprazole 40 mg tablet,delayed release 40 mg PO HS Gastrointestinal issue 04/11/20
aspirin 81 mg chewable tablet 81 mg PO DAILY 04/19/20
acetaminophen 500 mg tablet 1,000 mg PO Q8H PRN mild pain/temp>100 12/14/23
atorvastatin 40 mg tablet 40 mg PO HS High Cholesterol 12/14/23
calcium carbonate 500 mg PO Q6H PRN nausea 12/14/23
carvedilol 6.25 mg tablet 6.25 mg PO HS Heart Failure 12/14/23
carvedilol 6.25 mg tablet 12.5 mg PO DAILY Heart Failure 12/14/23
cyanocobalamin (vitamin B-12) 500 mcg tablet 1,000 mcg PO DAILY Supplement 12/14/23
dextran 70-hypromellose eye drops in a dropperette (Artificial Tears (PF) drops in a dropperette) 1 drp BOTH EYES BID PRN dry eyes 12/14/23
docusate sodium 100 mg capsule 100 mg PO Q12H PRN constipation 12/14/23
ferrous sulfate 325 mg (65 mg iron) tablet 325 mg PO DAILY Supplement 12/14/23
guaifenesin 600 mg tablet, extended release 12 hr (Mucinex) 600 mg PO Q12H PRN congestion 12/14/23
melatonin 3 mg tablet 3 mg PO HS Sleep 12/14/23
folic acid 1 mg tablet 1 mg PO DAILY #30 tabs 12/18/23
Home Medication Changes
Pending Results: No
--- NOTE | 2023-12-19 09:46 | CM ---
Addendum entered by Nina Storey 12/19/23 11:07:
call placed to patient son; [email or web address] will email patient IMM
Addendum entered by Nina Storey 12/19/23 11:02:
CM spoke with Karen at [facility]. [facility] to roller picker patient at noon in [facility], updated patient nurse and nurse provided report to Personal Care Nurse at [facility]. Please fax clinical information to [phone]. CM will continue to
follow for discharge planning needs.
Plan; return to personal care
Original Note:
VM left for Ophelia at [facility] and email sent. Patient for discharge today to return to personal care at [facility]. PT/OT script from physician to be placed on chart. Patient family requesting [facility] transportation. CM awaiting confirmation from
[facility]. CM will continue to follow for discharge planning needs.
Plan; return to personal Care. [facility]
[2023-12-19 11:30] VITALS: BP 128/67
== END 2023-12-19 13:00 | DRG 641 ==
LOC: 4 WEST ACU 02:52
PROVIDERS: Hospitalist; ADMITTING PHYSICIAN Hospitalist; ATTENDING PHYSICIAN Hospitalist; EMERGENCY PHYSICIAN Emergency Medicine; FAMILY PHYSICIAN Internal Medicine
DX: E87.6 Hypokalemia (principal); N17.9 Acute kidney failure, unspecified; I50.22 Chronic systolic (congestive) heart failure; F03.A3 Unspecified dementia, mild, with mood disturbance; Z66 Do not resuscitate; E87.1 Hypo-osmolality and hyponatremia; I25.10 Atherosclerotic heart disease of native coronary artery without angina pectoris; D56.3 Thalassemia minor; F32.A Depression, unspecified; K52.9 Noninfective gastroenteritis and colitis, unspecified; I95.9 Hypotension, unspecified
CPT/HCPCS: 80048; 80053; 82607; 82728; 82746; 83540; 83550; 83690; 83735; 85025; 85027; 87070; 96365; 96375; 97116; 97162; 97166; 99285

== ENCOUNTER → 2024-01-10 09:33 | Outpatient (REF) | payer MEDICARE, SELFPAY ==
[2024-01-10 11:16] LABS: % Basophils 0.5 % (0-2); % Eosinophils 1.9 % (0-6); % Immature Granulocytes 0.2 % (0-0.5); % Lymphocytes 31.5 % (20.5-51.1); % Monocytes 10.5 % (1.7-9.3); % Neutrophils 55.4 % (42.2-75.2); Absolute Eosinophils 0.1 10^3/uL (0-0.7); Absolute Lymphocytes 1.8 10^3/uL (1.2-3.4); Absolute Monocytes 0.6 10^3/uL (0.1-0.6); Absolute Neutrophils 3.2 10^3/uL (1.4-6.5); Hematocrit 28.1 % (37.0-47.0); Hemoglobin 8.6 g/dL (12.0-16.0); Mean Corp Hgb Conc. 30.6 g/dL (33.0-37.0); Mean Corpuscular Hgb 19.5 pg (27.0-31.0); Mean Corpuscular Volume 63.9 fL (81.0-99.0); Nucleated Red Blood Cells % 0 %; Red Cell Dist. Width 17.9 % (11.5-14.5); White Blood Cell Count 5.7 10^3/uL (4.8-10.8)
[2024-01-10 11:29] LABS: Blood Urea Nitrogen 18 mg/dl (7-17); Calcium 8.9 mg/dl (8.4-10.2); Carbon Dioxide 25 mmol/L (22-30); Chloride 109 mmol/L (98-107); Glucose 76 mg/dl (70-99); Potassium 4.2 mmol/L (3.5-5.1); Sodium 137 mmol/L (135-145); eGFR > 60.00
[2024-01-10 11:51] LABS: Platelet Count 219 10^3/uL (130-400)
== END ==
LOC: OLABWPC 09:33
PROVIDERS: ATTENDING PHYSICIAN Nurse Practitioner Family
DX: I25.10 Atherosclerotic heart disease of native coronary artery without angina pectoris (principal); D64.9 Anemia, unspecified; I42.9 Cardiomyopathy, unspecified; K21.9 Gastro-esophageal reflux disease without esophagitis
CPT/HCPCS: 36415; 80048; 85025

== ENCOUNTER 2024-01-19 15:18 | Inpatient (IN) | payer MEDICARE, SELFPAY ==
[2024-01-19] VITALS (14 sets, daily range): BP systolic 110–137; BP diastolic 43–81; BMI 26.2; BMI 29.3
--- NOTE | 2024-01-19 10:03 | ED.GENMED ---
History of Present Illness
General
Chief Complaint: Fall
Time Seen by Provider: 01/19/24 10:01
History of Present Illness
History of Present Illness:
40-year-old female with history of thalassemia presents to the emergency department via EMS for fall last night. She states she felt lightheaded when attempting to ambulate, lost her balance and fell. She states she was able to get herself off the
floor however EMS reports that staff had to assist the patient back to her feet this morning. Patient is unaware of what time she fell. She denies any lightheadedness but currently feels fatigued. Denies any headache or vision changes. No
extremity paresthesias. She states she was able to lower extremity however again this is refuted by EMS staff. She does appear to be oriented fully otherwise
Past History
Past History
ED Past Medical History: Psychiatric (Depression)
ED Past Surgical History: Orthopedic and Urological; Negative Cardiac
Social History
Tobacco: Former smoker
Alcohol: None
Drug: None
Personal: Single
Living: alone
Employment: Retired
Family History
Family History: CAD; Negative Early CAD
Review of Systems
Review of Systems
Allergies reviewed?: Yes
All Other Systems: ROS reviewed and negative except as documented in HPI and ROS
Phy Exam
Physical Exam
Physical Exam:
GEN: Well appearing, NAD, WDWN
Eyes: PERRLA, EOMs intact, no scleral icterus
HENT: NCAT, oral mucosa moist
Lungs: CTAB, no wheezes, rales, rhonchi, normal chest wall excursion
Cardiac: RRR, no M/R/G, no peripheral edema. Radial pulses 2+ bilat
Abdomen: S, NT, ND, NABS, no masses or hepatosplenomegaly
Neuro: AO x 3, no focal deficits to BUE/BLE, normal sensation throughout
MSK: Moderate swelling/ecchymosis to L ankle, mild tenderness to midshaft L fibula, L DP pulse strong
Skin: No rashes, petechiae. General pallor noted
Psych: Calm, cooperative, proper hygiene
Course
Orders/Labs/Results
Orders:
Orders
01/19/24 10:02
CT Head W/o Iv Contrast Urgent
Comment:
Reason For Exam: fall
Ankle, left 3 view CR [CR Ankle - Left Min 3 Views ] Urgent
Comment:
Reason For Exam: fall
CR Leg Tibia/fibula Left 2 Vw Urgent
Comment:
Reason For Exam: fall
01/19/24 10:03
Electrocardiogram (*1) Urgent
Reason for Study: Vertigo / Dizzy
EKG- Treatment ONCE
01/19/24 10:08
Type+Screen Urgent
CPK [Creatine Phosphokinase] Urgent
Complete Blood Count/With Diff Urgent
Comprehensive Metabolic Panel Urgent
01/19/24 10:20
Urinalysis Reflex To Culture Urgent
Date Specimen was Collected: 01/19/24
Time Specimen was Collected: 10:19
Comment: straight cath
Urine Microscopic Reflex Cult Urgent
Urine Culture Urgent
ANDREW Source: U
Specimen Description:
Date Specimen was Collected: 01/19/24
Time Specimen was Collected: 10:19
01/19/24 12:53
0.9% Sodium Chloride 1000 ml [Nss] 1,000 ml IV BOLUS
01/19/24 13:20
CR Chest Portable - 1 View Urgent
Comment:
Reason For Exam: sepsis
Reason Study Needs to be Portable: Other
01/19/24 13:33
Lactic Acid Q4H
Comment: CANCEL 2nd LACTIC ACID IF 1st LACTIC ACID IS LESS THAN 2
Blood Culture Q30M
ANDREW Source: Blood/Venous
Specimen Description:
01/19/24 13:44
Blood Culture Q30M
ANDREW Source: Blood/Venous
Specimen Description:
01/19/24 14:16
Add On - Microbiology Urgent
Tests Added?: urine culture
CefTRIAXone [Rocephin] 1,000 mg IV NOW STA
01/19/24 14:37
Sterile Water [Sterile Water For Injection] 10 ml .ROUTE .STK-MED ONE
01/19/24 15:00
Admit/Transfer Patient As Directed
Co-Sign Provider:
Level of Care: Inpatient admission
Assign to:: Medical/Surgical
Physician / Group: [facility]
Diagnosis: Fall, weakness, leukocytosis
Reason for Hospitalization: Infection workup, PT
Expected length of stay greater than two midnights?: Yes
ELOS- Estimated Length of Stay in days: 3
I certify the patient meets the requirements for IP care: Yes
01/19/24 15:03
Code Status As Directed
Resuscitation Status: Do not resuscitate
Reached after discussion with pt or family/Healthcare POA: Yes
DNR Bracelet Application ONCE
01/19/24 16:19
0.9% Sodium Chloride 1000 ml [Nss] 1,000 ml IV 80 mls/hr
Acetaminophen [Tylenol] 650 mg PO Q6HPRN PRN
Docusate Sodium [Colace] 100 mg PO P21GIRM PRN
Guaifenesin [Mucinex] 600 mg PO [id number] PRN
01/19/24 16:19
Activity As Directed
Activity Level: With Assistance
Orthostatic Vital Signs As Directed
Orthostatic VS Frequency: Daily
Ot Eval And Treat Routine
Pt Eval And Treat Routine
Activity Level: With Assistance
DX Deep Vein Thrombosis Video Routine
01/19/24 16:46
Artificial Tears (Pf) [Refresh Eye Drops (Pf)] 1 drops BOTH EYES BIDPRN PRN
01/19/24 16:48
Calcium Carbonate Chewable [Tums] 1 tablet PO Q6HPRN PRN
01/19/24 18:00
Enoxaparin Sodium [Lovenox] 30 mg SC QPM
01/19/24 20:00
Venlafaxine [Effexor] 75 mg PO BID
01/19/24 22:00
Atorvastatin [Lipitor] 40 mg PO HS
Carvedilol [Coreg] 6.25 mg PO HS
Melatonin 3 mg PO HS
Pantoprazole [Protonix] 40 mg PO HS
01/20/24 06:00
CPK [Creatine Phosphokinase] IN AM
Complete Blood Count/With Diff IN AM
Comprehensive Metabolic Panel IN AM
01/20/24 08:00
Aspirin Chewable [Low Strength Aspirin] 81 mg PO DAILY
Carvedilol [Coreg] 12.5 mg PO DAILY
Cyanocobalamin [Vitamin B-12] 1,000 mcg PO DAILY
FOLic ACID [Folvite] 1 mg PO DAILY
Ferrous Sulfate [Feosol] 325 mg PO DAILY
Abnormal Lab Results
01/19/24 01/19/24
10:08 10:20
WBC 21.6 H 10^3/uL
(4.8-10.8)
Hgb 9.7 L g/dL
(12.0-16.0)
Hct 31.1 L %
(37.0-47.0)
MCV 63.2 L fL
(81.0-99.0)
MCH 19.7 L pg
(27.0-31.0)
MCHC 31.2 L g/dL
(33.0-37.0)
RDW 17.4 H %
(11.5-14.5)
Abs Immat Gran (auto) 0.2 H 10^3/uL
(0-0.05)
Absolute Neuts (auto) 17.7 H 10^3/uL
(1.4-6.5)
Absolute Monos (auto) 2.1 H 10^3/uL
(0.1-0.6)
Immature Gran % 0.7 H %
(0-0.5)
Neutrophils % 82.1 H %
(42.2-75.2)
Lymphocytes % 7.2 L %
(20.5-51.1)
Monocytes % 9.8 H %
(1.7-9.3)
BUN 20 H mg/dl
(7-17)
Glucose 104 H mg/dl
(70-99)
Total Bilirubin 1.6 H mg/dl
(0.2-1.3)
Creatine Kinase 213 H U/L
(30-135)
Albumin 3.4 L g/dl
(3.5-5.0)
Urine Ketones Trace A
(Negative)
Urine Bilirubin 1+ A
(Negative)
Leukocyte Esterase Rfl Trace A
(Negative)
Urine Bacteria (Reflex) Few A
(Negative)
01/19/24 10:08
01/19/24 10:08
Vital Signs
Initial and Last Documented VS:
Initial Vital Signs
Temp Pulse Resp BP Pulse Ox
98.0 F 63 18 122/81 97
01/19/24 10:01 01/19/24 10:01 01/19/24 10:01 01/19/24 10:01 01/19/24 10:01
Last Documented Vital Signs
Temp Pulse Resp BP Pulse Ox
99.0 F 66 18 135/54 96
01/19/24 16:38 01/19/24 16:38 01/19/24 16:38 01/19/24 16:38 01/19/24 16:38
MDM/Problems Addressed
MDM/Problems Addressed:
Patient's x-ray showed no evidence for acute traumatic injury and CT of the head is normal. Her labs reveal profound leukocytosis of unclear etiology, urinalysis is relatively bland however clinically the urine is suspicious for infection. No
other alternative etiologies for infection were found. Due to her complaints of fatigue and weakness we will treat empirically with IV antibiotics until further cultures can result. She is not suitable for discharge to home thus will admit for
further management
*Critical Care Note
Total Time (30-74mins, 75-104mins- exclusive of procedures): Not Applicable
ED Attending Note
-
Portions of this chart may have been created with voice recognition software.� Occasional wrong word or��sound alike� substitutions may have occurred due to the inherent limitations of voice recognition software.
Discharge Plan
Departure
Patient Disposition: Admit
Date of Disposition: 01/19/24
Time of Disposition: 14:32
Admit to: Med/Surg
Presentation/result/management discussed w/ accepting MD/DO: Hospitalist
Discharge Problem:
Generalized weakness, Ambulatory dysfunction, Leukocytosis
Interventions
Interventions:
*Risk Screen - Suicide Last Done: 01/19/24 10:10
*General Assessment Last Done: 01/19/24 10:10
*Neglect/Abuse Screening Last Done: 01/19/24 10:10
*ED COVID-19 Vaccine History Last Done: 01/19/24 16:23
*Nursing Disposition Last Done: 01/19/24 16:25
ED-Musculoskeletal Assessment Last Done: 01/19/24 10:00
ED- Neurological Assessment Last Done: 01/19/24 10:00
ED-Skin Assessment Last Done: 01/19/24 10:00
Discharge Date and Time
Discharge Date/Time: 01/19/24 16:15
[2024-01-19 10:19] LABS: % Basophils 0.2 % (0-2); % Immature Granulocytes 0.7 % (0-0.5); % Lymphocytes 7.2 % (20.5-51.1); % Monocytes 9.8 % (1.7-9.3); % Neutrophils 82.1 % (42.2-75.2); Absolute Immature Granulocytes 0.2 10^3/uL (0-0.05); Absolute Lymphocytes 1.6 10^3/uL (1.2-3.4); Absolute Monocytes 2.1 10^3/uL (0.1-0.6); Absolute Neutrophils 17.7 10^3/uL (1.4-6.5); Hematocrit 31.1 % (37.0-47.0); Hemoglobin 9.7 g/dL (12.0-16.0); Mean Corp Hgb Conc. 31.2 g/dL (33.0-37.0); Mean Corpuscular Hgb 19.7 pg (27.0-31.0); Mean Corpuscular Volume 63.2 fL (81.0-99.0); Nucleated Red Blood Cells % 0 %; Platelet Count 238 10^3/uL (130-400); Red Blood Cell Count 4.92 10^6/uL (4.20-5.40); Red Cell Dist. Width 17.4 % (11.5-14.5); White Blood Cell Count 21.6 10^3/uL (4.8-10.8)
[2024-01-19 10:29] LABS: ALT (SGPT) 15 U/L (0-35); AST (SGOT) 29 U/L (14-36); Albumin 3.4 g/dl (3.5-5.0); Alkaline Phosphatase 91 U/L (38-126); Blood Urea Nitrogen 20 mg/dl (7-17); Carbon Dioxide 26 mmol/L (22-30); Chloride 103 mmol/L (98-107); Creatine Phosphokinase 213 U/L (30-135); Estimated Creatinine Clearance 45 ml/min; Glucose 104 mg/dl (70-99); Sodium 136 mmol/L (135-145); Total Bilirubin 1.6 mg/dl (0.2-1.3); Total Protein 6.5 g/dl (6.3-8.2); eGFR > 60.00
[2024-01-19 11:05] LABS: Urine Albumin Trace (Neg - Trace); Urine Bilirubin 1+ (Negative); Urine Character Clear (Clear); Urine Color Yellow; Urine Glucose Negative (Negative); Urine Ketone Trace (Negative); Urine Leukocyte Trace (Negative); Urine Nitrite Negative (Negative); Urine Occult Blood Negative (Negative); Urine Specific Gravity 1.025 (<1.030); Urine Urobilinogen Negative (Neg - 1+)
[2024-01-19 12:03] LABS: Urine Amorphous Seen; Urine Squamous Cell 0-2 /LPF (Few)
[2024-01-19 12:04] LABS: Urine Bacteria Few (Negative); Urine Red Blood Cell 0-2 /HPF (0-2); Urine White Cell 0-2 /HPF (0-5)
[2024-01-19] MEDS: NSS 1000 IV ×2 (13:47→17:13)
[2024-01-19 14:02] LABS: Lactic Acid 1.3 mmol/L (0.7-2.0)
[2024-01-19] MEDS: ROCEPHIN 1000 MG IV (14:40)
--- NOTE | 2024-01-19 15:05 | HPS.HSE ---
Family Physician
-
Family Physician: Sherie Jefferson
Chief Complaint
-
Weakness, fall
History of Present Illness
88-year-old female from [facility] brought in by EMS for generalized weakness and ambulatory dysfunction. Apparently fell last night.
Patient has dementia and is unable to provide any significant details of history.
Patient's son states that the patient may have had diarrhea recently as well.
Medical History
Past Medical History
Past Medical History: Reports Other
Additional Past Medical History:
Chronic heart failure reduced EF
Hyperlipidemia
Essential hypertension
Alzheimer's dementia
GERD
Thalassemia minor
Chronic anemia
CAD
Nephrolithiasis
Past Surgical History: Reports Other
Additional Past Surgical History:
Bilateral total hip arthroplasty
Left total knee replacement
Social History
Tobacco: Non-smoker
Alcohol: None
Drug: None
Living: Assisted Living
Family History
Family History: Not pertinent
Allergies / Home Medications
Allergies reflects when Allergies were last updated in [facility].
Home Medications with original date entered in [facility]
Allergy/Medication List:
Allergies
Allergy/AdvReac Type Severity Reaction Status Date / Time
amoxicillin [From Augmentin] Allergy Unknown Verified 01/19/24 10:03
clavulanic acid Allergy Unknown Verified 01/19/24 10:03
[From Augmentin]
Iodine and Iodide Containing Allergy Unknown Verified 01/19/24 10:03
Produc
Home Medications
pantoprazole 40 mg tablet,delayed release 40 mg PO HS Gastrointestinal issue 04/11/20
aspirin 81 mg chewable tablet 81 mg PO DAILY 04/19/20
acetaminophen 500 mg tablet 1,000 mg PO Q8HPRN PRN mild pain/temp>100 12/14/23
atorvastatin 40 mg tablet 40 mg PO HS High Cholesterol 12/14/23
calcium carbonate 500 mg PO Q6HPRN PRN nausea 12/14/23
carvedilol 6.25 mg tablet 6.25 mg PO HS Heart Failure 12/14/23
carvedilol 6.25 mg tablet 12.5 mg PO DAILY Heart Failure 12/14/23
cyanocobalamin (vitamin B-12) 500 mcg tablet 1,000 mcg PO DAILY Supplement 12/14/23
dextran 70-hypromellose eye drops in a dropperette (Artificial Tears (PF) drops in a dropperette) 1 drp BOTH EYES BIDPRN PRN dry eyes 12/14/23
docusate sodium 100 mg capsule 100 mg PO [id number] PRN constipation 12/14/23
ferrous sulfate 325 mg (65 mg iron) tablet 325 mg PO DAILY Supplement 12/14/23
guaifenesin 600 mg tablet, extended release 12 hr (Mucinex) 600 mg PO [id number] PRN congestion 12/14/23
melatonin 3 mg tablet 3 mg PO HS Sleep 12/14/23
folic acid 1 mg tablet 1 mg PO DAILY #30 tabs 12/18/23
venlafaxine 75 mg tablet 75 mg PO BID 01/19/24
Review of Systems
-
History Source: Patient
A 12 point ROS was completed and negative except as noted: Yes
Constitutional: Reports Fatigue
Respiratory: Reports No Symptoms
Cardiac: Reports No Symptoms
Abdomen/GI: Reports No Symptoms
: Reports No Symptoms
Physical Exam
Vital Signs
Vital Signs
Temp Pulse Resp BP Pulse Ox
98.0 F 65 21 129/55 94
01/19/24 10:01 01/19/24 14:30 01/19/24 14:30 01/19/24 14:30 01/19/24 14:30
Physical Exam
General: Well Developed, Well Nourished, No Apparent Distress and Comfortable
HEENT: NormoCephalic, Anicteric and Moist mucous membranes
Respiratory: Clear
Cardiac: S1/S2 and Regular Rhythm
GI: Soft, Non Tender and Non Distended
Genito-urinary: Deferred by me
Musculoskeletal: No Clubbing, No Cyanosis and No Edema
Skin: Warm and Dry
Neuro: Awake and Alert
Hematologic/Lymphatic: No Lymphadenopathy
Psych: Calm and Apparent Dementia
Laboratory Results
-
01/19/24 10:08
01/19/24 10:08
Laboratory Results
Lactic Acid 1.3 mmol/L (0.7-2.0) 01/19/24 13:33
Total Bilirubin 1.6 mg/dl (0.2-1.3) H 01/19/24 10:08
AST 29 U/L (14-36) 01/19/24 10:08
ALT 15 U/L (0-35) 01/19/24 10:08
Alkaline Phosphatase 91 U/L (38-126) 01/19/24 10:08
Impression/Plan
-
Ambulatory dysfunction, falls -generalized weakness. Differential diagnosis includes underlying infection versus deconditioning versus other causes such as volume depletion. Rule out orthostatic hypotension.
Admit to MedSurg. IV fluids, check orthostatic vitals. If she has diarrhea, we will check stool studies.
Leukocytosis -no other signs or symptoms of infection. Looks nontoxic. Ceftriaxone administered by the emergency room. Urinalysis appears unremarkable. I see no evidence of pneumonia. She is afebrile and hemodynamically stable. Will hold
further antibiotics and observe in the hospital.
Mild traumatic rhabdomyolysis -should improve with IV fluids. Recheck CPK in the morning.
Chronic heart failure reduced EF -stable.
Essential hypertension -stable.
Hyperlipidemia -on atorvastatin.
Alzheimer's dementia
GERD
Chronic microcytic anemia -history of iron deficiency, thalassemia minor. Hemoglobin at baseline.
DNR -confirmed with patient.
Updated patient's son Allen on the phone. All questions answered.
--- NOTE | 2024-01-19 16:51 | PTCARENOTE ---
Arrived to floor and pulled over to bed from ED stretcher. Patient with L leg pain with turning/movement. Noted swelling +2 to L ankle. +pedal pulse. Patient is only oriented to self and place. Call du within reach. Bed alarm on. Oriented to
room.
[2024-01-19] MEDS: LOVENOX 30 MG SC (17:15)
[2024-01-19] MEDS: LIPITOR 40 MG PO (21:20)
[2024-01-19] MEDS: MELATONIN 3 MG PO (21:20)
[2024-01-19] MEDS: EFFEXOR 75 MG PO (21:20)
[2024-01-19] MEDS: PROTONIX 40 MG PO (21:21)
[2024-01-19] MEDS: COREG 6.25 MG PO (21:25)
[2024-01-20] MEDS: TYLENOL 650 MG PO (00:27)
[2024-01-20] MEDS: NSS 1000 IV (05:06)
[2024-01-20 07:24] LABS: % Basophils 0.2 % (0-2); % Eosinophils 0.2 % (0-6); % Immature Granulocytes 0.9 % (0-0.5); % Lymphocytes 9.3 % (20.5-51.1); % Monocytes 9.7 % (1.7-9.3); % Neutrophils 79.7 % (42.2-75.2); Absolute Immature Granulocytes 0.2 10^3/uL (0-0.05); Absolute Lymphocytes 1.6 10^3/uL (1.2-3.4); Absolute Monocytes 1.7 10^3/uL (0.1-0.6); Absolute Neutrophils 13.7 10^3/uL (1.4-6.5); Hematocrit 25.8 % (37.0-47.0); Hemoglobin 8.2 g/dL (12.0-16.0); Mean Corp Hgb Conc. 31.8 g/dL (33.0-37.0); Mean Corpuscular Volume 62.9 fL (81.0-99.0); Nucleated Red Blood Cells % 0 %; Platelet Count 191 10^3/uL (130-400); Red Cell Dist. Width 17.2 % (11.5-14.5); White Blood Cell Count 17.2 10^3/uL (4.8-10.8)
[2024-01-20 07:30] VITALS: BP 96/45
[2024-01-20 08:00] LABS: ALT (SGPT) 12 U/L (0-35); AST (SGOT) 24 U/L (14-36); Albumin 2.4 g/dl (3.5-5.0); Alkaline Phosphatase 75 U/L (38-126); Blood Urea Nitrogen 23 mg/dl (7-17); Carbon Dioxide 22 mmol/L (22-30); Chloride 110 mmol/L (98-107); Creatine Phosphokinase 146 U/L (30-135); Estimated Creatinine Clearance 45 ml/min; Glucose 91 mg/dl (70-99); Potassium 3.8 mmol/L (3.5-5.1); Sodium 137 mmol/L (135-145); Total Bilirubin 0.7 mg/dl (0.2-1.3); Total Protein 5.1 g/dl (6.3-8.2); eGFR > 60.00
[2024-01-20] MEDS: EFFEXOR 75 MG PO ×2 (08:27→19:59)
[2024-01-20] MEDS: LOW STRENGTH ASPIRIN 81 MG PO (08:27)
[2024-01-20] MEDS: VITAMIN B-12 1000 MCG PO (08:29)
[2024-01-20] MEDS: FEOSOL 325 MG PO (08:29)
[2024-01-20] MEDS: FOLVITE 1 MG PO (08:29)
--- NOTE | 2024-01-20 09:58 | W.PN.HOSP.TC ---
Today's Communication/Plan
-
Await cultures
PT/OT
Orthostatic vitals
Assessment / Plan
Assessment / Plan
Gen-awake, alert, NAD
HEENT-NC, AT, anicteric, clear oral mm
Neck-supple
CV-reg, no M, +S1/S2
Lungs-clear B/L
Abd-soft, NT, ND
Ext-no edema
Musculoskeletal-no cyanosis, clubbing
Skin-warm and dry
Neuro-grossly non-focal
Psych-calm, cooperative
Sepsis -present on admission. Fever noted last night, afebrile this morning. Looks nontoxic. Leukocytosis improving. Source of sepsis unclear. Blood and urine cultures pending. Received 1 dose of ceftriaxone yesterday. Currently off
antibiotics.
Ambulatory dysfunction, falls -generalized weakness. Differential diagnosis includes underlying infection versus deconditioning versus other causes such as volume depletion. Rule out orthostatic hypotension.
Check orthostatic vitals.
Mild traumatic rhabdomyolysis -should improve with IV fluids. CPK trending down.
Chronic heart failure reduced EF -stable.
Essential hypertension -stable.
Hyperlipidemia -on atorvastatin.
Alzheimer's dementia
GERD
Chronic microcytic anemia -history of iron deficiency, thalassemia minor. Hemoglobin at baseline. Monitor for now.
DNR -confirmed with patient.
Anticipated Discharge: 24 - 48 hours
Subjective/Interval History
-
Date of Service: January 20, 2024
Patient seen and examined. No complaints.
Objective Data
-
Labs:
Laboratory Results
01/20/24
06:49
WBC 17.2 H
Hgb 8.2 L
Hct 25.8 L
Plt Count 191
Sodium 137
Potassium 3.8
Chloride 110 H
Carbon Dioxide 22
BUN 23 H
Creatinine 0.7
Glucose 91
Calcium 8.0 L
Total Bilirubin 0.7
AST 24
ALT 12
Alkaline Phosphatase 75
Vital Signs:
Vital Signs
Temp Pulse Resp BP Pulse Ox
97.9 F 70 16 96/45 94
01/20/24 07:30 01/20/24 07:30 01/20/24 07:30 01/20/24 07:30 01/20/24 07:30
I&O
01/19/24 01/20/24 01/21/24
06:59 06:59 06:59
Intake Total 120 / 120
Balance 120 / 120
Review of Systems
-
History Source: Patient
All other systems: Reviewed and negative
[2024-01-20 10:07] VITALS: BP 101/53; BP 106/60; BP 115/73; PULSE 74; PULSE 83; PULSE 94
[2024-01-20] MEDS: COREG 12.5 MG PO (10:27)
--- NOTE | 2024-01-20 11:19 | PTCARENOTE ---
Encouraged patient to get up OOB. Offered to assist patient a few times but patient refused. Explained to patient need to not lay in bed. Patient states that she 'wants to sleep' and will 'get up later'. Told patient that when lunch arrives, will
assist her to chair.
[2024-01-20 12:42] VITALS: BP 107/48; BP 118/51; PULSE 74; PULSE 81; O2SAT 94
[2024-01-20 12:43] VITALS: BP 107/78; BP 118/51; PULSE 70
[2024-01-20 15:25] VITALS: BP 108/45
[2024-01-20] MEDS: LOVENOX 30 MG SC (17:55)
--- NOTE | 2024-01-20 19:17 | CM ---
Pt is a resident of [facility]. Therapy evaluations indicate Cathy would benefit from short term SNF at discharge.
Referral sent to [facility] for consideration of NF return.
Insurance company closed and unable to obtain authorization.
Plan: CM to follow up for SNF authorization from insurance [employer], pending acceptance to [facility].
[2024-01-20] MEDS: DESENEX/MITRAZOL/ZEASORB 1 APPLIC TOPICAL (20:00)
[2024-01-20] MEDS: MELATONIN 3 MG PO (21:05)
[2024-01-20] MEDS: LIPITOR 40 MG PO (21:05)
[2024-01-20] MEDS: COREG 6.25 MG PO (21:06)
[2024-01-20] MEDS: PROTONIX 40 MG PO (21:06)
[2024-01-20 23:58] VITALS: BP 113/87
[2024-01-21 07:23] LABS: % Basophils 0.3 % (0-2); % Eosinophils 0.9 % (0-6); % Immature Granulocytes 0.4 % (0-0.5); % Lymphocytes 11.4 % (20.5-51.1); % Monocytes 8.3 % (1.7-9.3); % Neutrophils 78.7 % (42.2-75.2); Absolute Eosinophils 0.1 10^3/uL (0-0.7); Absolute Immature Granulocytes 0.1 10^3/uL (0-0.05); Absolute Lymphocytes 1.4 10^3/uL (1.2-3.4); Absolute Monocytes 1.1 10^3/uL (0.1-0.6); Hematocrit 24.7 % (37.0-47.0); Hemoglobin 7.8 g/dL (12.0-16.0); Mean Corp Hgb Conc. 31.6 g/dL (33.0-37.0); Mean Corpuscular Hgb 19.7 pg (27.0-31.0); Mean Corpuscular Volume 62.5 fL (81.0-99.0); Nucleated Red Blood Cells % 0 %; Platelet Count 190 10^3/uL (130-400); Red Blood Cell Count 3.95 10^6/uL (4.20-5.40); Red Cell Dist. Width 16.6 % (11.5-14.5); White Blood Cell Count 12.7 10^3/uL (4.8-10.8)
[2024-01-21 07:28] VITALS: BP 110/62; BP 127/54; BP 131/60; PULSE 100; PULSE 73; PULSE 84
--- NOTE | 2024-01-21 08:03 | W.PN.HOSP.TC ---
Today's Communication/Plan
-
Continue current care
Assessment / Plan
Assessment / Plan
Gen-awake, alert, NAD
HEENT-NC, AT, anicteric, clear oral mm
Neck-supple
CV-reg, no M, +S1/S2
Lungs-clear B/L
Abd-soft, NT, ND
Ext-no edema
Musculoskeletal-no cyanosis, clubbing
Skin-warm and dry
Neuro-grossly non-focal
Psych-calm, cooperative
Sepsis -present on admission. No further fevers. Looks nontoxic. Leukocytosis improving. Source of sepsis unclear. Blood cultures negative so far, urine culture no significant growth. Received 1 dose of ceftriaxone in the emergency room.
Currently off antibiotics.
Ambulatory dysfunction, falls -generalized weakness. Differential diagnosis includes underlying infection versus deconditioning versus other causes such as volume depletion. Rule out orthostatic hypotension.
Check orthostatic vitals.
Mild traumatic rhabdomyolysis -should improve with IV fluids. CPK trending down.
Chronic heart failure reduced EF -stable.
Essential hypertension -stable.
Hyperlipidemia -on atorvastatin.
Alzheimer's dementia
GERD
Chronic microcytic anemia -history of iron deficiency, thalassemia minor. Hemoglobin down to 7.8. Suspect baseline hemoglobin 8.5-9.5. Suspect hemodilution. Doubt bleeding. Monitor for now.
DNR -confirmed with patient.
Dispo -needs SNF on discharge. Anticipate discharge when authorization obtained.
Anticipated Discharge: Within 24 hours
Subjective/Interval History
-
Date of Service: January 21, 2024
Patient seen and examined. No complaints.
Objective Data
-
Labs:
Laboratory Results
01/21/24
06:45
WBC 12.7 H
Hgb 7.8 L
Hct 24.7 L
Plt Count 190
Vital Signs:
Vital Signs
Temp Pulse Resp BP Pulse Ox
99.1 F 70 15 113/87 95
01/20/24 23:58 01/20/24 23:58 01/20/24 23:58 01/20/24 23:58 01/20/24 23:58
I&O
01/20/24 01/21/24 01/22/24
06:59 06:59 06:59
Intake Total 120 / 120 360 / 360
Balance 120 / 120 360 / 360
Review of Systems
-
History Source: Patient
All other systems: Reviewed and negative
[2024-01-21] MEDS: FOLVITE 1 MG PO (09:33)
[2024-01-21] MEDS: EFFEXOR 75 MG PO ×2 (09:33→20:02)
[2024-01-21] MEDS: LOW STRENGTH ASPIRIN 81 MG PO (09:33)
[2024-01-21] MEDS: FEOSOL 325 MG PO (09:33)
[2024-01-21] MEDS: VITAMIN B-12 1000 MCG PO (09:33)
[2024-01-21] MEDS: COREG 12.5 MG PO (09:34)
[2024-01-21] MEDS: DESENEX/MITRAZOL/ZEASORB 1 APPLIC TOPICAL ×2 (09:34→20:07)
--- NOTE | 2024-01-21 10:51 | PTCARENOTE ---
Patient with MRSA positive in nares. Patient assigned private room. Report called to BOOGIE Siegel.
[2024-01-21 15:00] VITALS: BP 135/59
[2024-01-21] MEDS: TYLENOL 650 MG PO (15:53)
[2024-01-21] MEDS: LOVENOX 30 MG SC (17:10)
[2024-01-21] MEDS: LIPITOR 40 MG PO (20:02)
[2024-01-21] MEDS: PROTONIX 40 MG PO (20:03)
[2024-01-21] MEDS: COREG 6.25 MG PO (20:06)
[2024-01-21] MEDS: MELATONIN PO (20:12)
[2024-01-21 23:00] VITALS: BP 132/56
[2024-01-22 07:00] VITALS: BP 151/70
[2024-01-22 07:56] LABS: % Basophils 0.4 % (0-2); % Eosinophils 1.5 % (0-6); % Immature Granulocytes 0.5 % (0-0.5); % Lymphocytes 10.9 % (20.5-51.1); % Monocytes 8.7 % (1.7-9.3); Absolute Eosinophils 0.2 10^3/uL (0-0.7); Absolute Immature Granulocytes 0.1 10^3/uL (0-0.05); Absolute Lymphocytes 1.2 10^3/uL (1.2-3.4); Absolute Monocytes 0.9 10^3/uL (0.1-0.6); Absolute Neutrophils 8.2 10^3/uL (1.4-6.5); Hematocrit 26.1 % (37.0-47.0); Hemoglobin 8.2 g/dL (12.0-16.0); Mean Corp Hgb Conc. 31.4 g/dL (33.0-37.0); Mean Corpuscular Hgb 19.6 pg (27.0-31.0); Mean Corpuscular Volume 62.3 fL (81.0-99.0); Nucleated Red Blood Cells % 0 %; Platelet Count 236 10^3/uL (130-400); Red Blood Cell Count 4.19 10^6/uL (4.20-5.40); Red Cell Dist. Width 16.8 % (11.5-14.5); White Blood Cell Count 10.6 10^3/uL (4.8-10.8)
[2024-01-22] MEDS: EFFEXOR 75 MG PO ×2 (08:16→21:33)
[2024-01-22] MEDS: FEOSOL 325 MG PO (08:17)
[2024-01-22] MEDS: LOW STRENGTH ASPIRIN 81 MG PO (08:17)
[2024-01-22] MEDS: COREG 12.5 MG PO (08:17)
[2024-01-22] MEDS: VITAMIN B-12 1000 MCG PO (08:17)
[2024-01-22] MEDS: FOLVITE 1 MG PO (08:17)
[2024-01-22] MEDS: DESENEX/MITRAZOL/ZEASORB 1 APPLIC TOPICAL ×2 (08:19→21:37)
--- NOTE | 2024-01-22 10:51 | W.PN.HOSP.TC ---
Today's Communication/Plan
-
Discharge planning
Assessment / Plan
Assessment / Plan
Gen-awake, alert, NAD
HEENT-NC, AT, anicteric, clear oral mm
Neck-supple
CV-reg, no M, +S1/S2
Lungs-clear B/L
Abd-soft, NT, ND
Ext-no edema
Musculoskeletal-no cyanosis, clubbing
Skin-warm and dry
Neuro-grossly non-focal
Psych-calm, cooperative
Sepsis -present on admission. No further fevers. Looks nontoxic. Leukocytosis resolved. Source of sepsis unclear. Blood cultures negative so far, urine culture no significant growth. Received 1 dose of ceftriaxone in the emergency room.
Currently off antibiotics.
Ambulatory dysfunction, falls -generalized weakness. Differential diagnosis includes underlying infection versus deconditioning versus other causes such as volume depletion. Not significantly orthostatic.
Mild traumatic rhabdomyolysis -should improve with IV fluids. CPK trending down.
Chronic heart failure reduced EF -stable.
Essential hypertension -stable.
Hyperlipidemia -on atorvastatin.
Alzheimer's dementia
GERD
Chronic microcytic anemia -history of iron deficiency, thalassemia minor. Hemoglobin stable at 8.2. Suspect baseline hemoglobin 8.5-9.5. Suspect hemodilution. Doubt bleeding. Monitor for now.
DNR -confirmed with patient.
Dispo -medically stable for discharge to SNF.
Anticipated Discharge: Within 24 hours
Subjective/Interval History
-
Date of Service: January 22, 2024
Patient seen and examined. No complaints.
Objective Data
-
Labs:
Laboratory Results
01/22/24
07:00
WBC 10.6
Hgb 8.2 L
Hct 26.1 L
Plt Count 236 D
Vital Signs:
Vital Signs
Temp Pulse Resp BP Pulse Ox
98.0 F 66 18 151/70 97
01/22/24 07:00 01/22/24 08:17 01/22/24 07:00 01/22/24 08:17 01/22/24 07:00
I&O
01/21/24 01/22/24 01/23/24
06:59 06:59 06:59
Intake Total 360 / 360 960 / 960
Balance 360 / 360 960 / 960
Review of Systems
-
History Source: Patient
All other systems: Reviewed and negative
[2024-01-22] MEDS: TYLENOL 650 MG PO (12:43)
[2024-01-22 15:00] VITALS: BP 131/49
[2024-01-22] MEDS: LOVENOX 30 MG SC (18:19)
[2024-01-22] MEDS: LIPITOR 40 MG PO (21:33)
[2024-01-22] MEDS: PROTONIX 40 MG PO (21:35)
[2024-01-22] MEDS: MELATONIN 3 MG PO (21:37)
[2024-01-22] MEDS: COREG 6.25 MG PO (21:37)
[2024-01-22 23:05] VITALS: BP 137/68
[2024-01-23] MEDS: EFFEXOR 75 MG PO ×2 (07:26→21:47)
[2024-01-23] MEDS: VITAMIN B-12 1000 MCG PO (07:26)
[2024-01-23] MEDS: LOW STRENGTH ASPIRIN 81 MG PO (07:26)
[2024-01-23] MEDS: FOLVITE 1 MG PO (07:26)
[2024-01-23] MEDS: DESENEX/MITRAZOL/ZEASORB 1 APPLIC TOPICAL ×2 (07:26→21:45)
[2024-01-23] MEDS: FEOSOL 325 MG PO (07:26)
[2024-01-23] MEDS: COREG 12.5 MG PO (07:27)
[2024-01-23 07:31] VITALS: BP 136/74
[2024-01-23 11:20] VITALS: BMI 27.5
--- NOTE | 2024-01-23 11:39 | W.PN.HOSP.TC ---
Today's Communication/Plan
-
Dispo -medically stable for discharge to SNF.
Assessment / Plan
Assessment / Plan
Gen-awake, alert, NAD
HEENT-NC, AT, anicteric, clear oral mm
Neck-supple
CV-reg, no M, +S1/S2
Lungs-clear B/L
Abd-soft, NT, ND
Ext-no edema
Musculoskeletal-no cyanosis, clubbing
Skin-warm and dry
Neuro-grossly non-focal
Psych-calm, cooperative
SIRS-present on admission. No further fevers. Looks nontoxic. Leukocytosis resolved. Blood cultures negative so far, urine culture no significant growth. Received 1 dose of ceftriaxone in the emergency room. Currently off antibiotics.
Ambulatory dysfunction, falls -generalized weakness. Differential diagnosis includes underlying infection versus deconditioning versus other causes such as volume depletion. Not significantly orthostatic.
Mild traumatic rhabdomyolysis -should improve with IV fluids. CPK downtrended. Encourage po intake
Chronic heart failure reduced EF -stable.
Essential hypertension -stable.
Hyperlipidemia -on atorvastatin.
Alzheimer's dementia
GERD
Chronic microcytic anemia -history of iron deficiency, thalassemia minor. Hemoglobin stable at 8.2. Suspect baseline hemoglobin 8.5-9.5. Suspect hemodilution. Doubt bleeding. Monitor for now. No luminal bleeding noted so far
DNR -confirmed with patient.
Dispo -medically stable for discharge to SNF.
Anticipated Discharge: Today
Subjective/Interval History
-
Date of Service: January 23, 2024
remains confused
walking wtih walker without any difficulty
Objective Data
-
Vital Signs:
Vital Signs
Temp Pulse Resp BP Pulse Ox
98.6 F 69 18 136/74 96
01/23/24 07:31 01/23/24 07:31 01/23/24 07:31 01/23/24 07:31 01/23/24 09:35
I&O
01/22/24 01/23/24 01/24/24
06:59 06:59 06:59
Intake Total 960 / 960 1680 / 1680
Balance 960 / 960 1680 / 1680
--- NOTE | 2024-01-23 12:39 | CM ---
Addendum entered by SAROJ Newton 01/23/24 16:27:
Placed another call to Ophelia in admissions at [facility] to determine bed availability. She stated that she may have a bed for patient, mid week, will initiate authorization
NPI for facility [id number]
NPI for attending at facility, Dr. Yung Sellers [id number]
Will call [facility].
Original Note:
Placed a call to Ophelia in admissions at [facility], who stated that she is unsure of her bed availability and will call back. Spoke with attending who stated that patient is medically cleared for discharge. Will ask patient/family for alternate
choices as patient is medically cleared to go.
Plan: Case management will continue to follow and assist with discharge planning. SNF upon receipt of confirmation of bed available at facility chosen by patient/family, and hopeful auth.
[2024-01-23 15:00] VITALS: BP 106/41
[2024-01-23] MEDS: LOVENOX 30 MG SC (17:13)
[2024-01-23] MEDS: COREG 6.25 MG PO (21:46)
[2024-01-23] MEDS: PROTONIX 40 MG PO (21:47)
[2024-01-23] MEDS: LIPITOR 40 MG PO (21:47)
[2024-01-23] MEDS: MELATONIN 3 MG PO (21:52)
[2024-01-23 23:07] VITALS: BP 131/54
[2024-01-24 07:00] VITALS: BP 136/57
[2024-01-24] MEDS: FEOSOL 325 MG PO (08:04)
[2024-01-24] MEDS: FOLVITE 1 MG PO (08:04)
[2024-01-24] MEDS: VITAMIN B-12 1000 MCG PO (08:04)
[2024-01-24] MEDS: LOW STRENGTH ASPIRIN 81 MG PO (08:04)
[2024-01-24] MEDS: EFFEXOR 75 MG PO ×2 (08:04→21:10)
[2024-01-24] MEDS: COREG 12.5 MG PO (08:07)
[2024-01-24] MEDS: DESENEX/MITRAZOL/ZEASORB 1 APPLIC TOPICAL ×2 (08:08→21:02)
--- NOTE | 2024-01-24 11:10 | W.PN.HOSP.TC ---
Today's Communication/Plan
-
medically stable for discharge to SNF.
Assessment / Plan
Assessment / Plan
Gen-awake, alert, NAD
HEENT-NC, AT, anicteric, clear oral mm
Neck-supple
CV-reg, no M, +S1/S2
Lungs-clear B/L
Abd-soft, NT, ND
Ext-chronic B/L LE edema
Musculoskeletal-no cyanosis, clubbing
Skin-warm and dry
Neuro-grossly non-focal
Psych-calm, cooperative
SIRS-present on admission. No further fevers. Looks nontoxic. Leukocytosis resolved. Blood cultures negative so far, urine culture no significant growth. Received 1 dose of ceftriaxone in the emergency room. Currently off antibiotics.
Ambulatory dysfunction, falls -generalized weakness. Differential diagnosis includes underlying infection versus deconditioning versus other causes such as volume depletion. Not significantly orthostatic.
Mild traumatic rhabdomyolysis -should improve with IV fluids. CPK downtrended. Encourage po intake
Chronic heart failure reduced EF -stable.
Essential hypertension -stable.
Hyperlipidemia -on atorvastatin.
Alzheimer's dementia
GERD
Chronic microcytic anemia -history of iron deficiency, thalassemia minor. Hemoglobin stable at 8.2. Suspect baseline hemoglobin 8.5-9.5. Suspect hemodilution. Doubt bleeding. Monitor for now. No luminal bleeding noted so far
DNR -confirmed with patient.
Dispo -medically stable for discharge to SNF.
Anticipated Discharge: Today
Subjective/Interval History
-
Date of Service: January 24, 2024
watching tv
tolerating diet
Objective Data
-
Vital Signs:
Vital Signs
Temp Pulse Resp BP Pulse Ox
98.5 F 64 18 131/55 94
01/24/24 07:00 01/24/24 08:07 01/24/24 07:00 01/24/24 08:07 01/24/24 07:00
I&O
01/23/24 01/24/24 01/25/24
06:59 06:59 06:59
Intake Total 1680 / 1680 1460 / 1460
Balance 1680 / 1680 1460 / 1460
[2024-01-24 15:00] VITALS: BP 130/47
[2024-01-24 15:09] LABS: Glucose - Point of Care 94 mg/dl (70-99)
[2024-01-24 15:10] VITALS: BP 143/66
--- NOTE | 2024-01-24 15:40 | FALL ---
Description of Fall: 1505: called into room by PT staff with pt sitting on ground in bathroom. pt reports trip and fall: mechanical. denies hitting head or suffering any other injuries Bed alarm was active but did not initiate alarm when pt got
out of bed. bed alarm tested s/p fall to ensure it is in working order.
Injuries Noted: none
Action Taken: Initial assessment upon discovering pt on floor, vitals and blood sugar obtained followed by getting pt back into bed safely and making MD Yoon aware along with staff working in the area. call be remains in reach along with
belongings and hydration. bed remains low. side rails up x 3. ongoing instructions provided to call for help if needed. bed/chair alarms continue to be active, tested to ensure they are both in working order. staff working in area made aware to
remain vigilant.
Name of Provider Notified: MD Yoon: no new orders; instructed to watch for increased pain or any other abnormal s/s.
--- NOTE | 2024-01-24 16:23 | CM ---
Spoke with attending who stated that patient is medically ready for discharge. [facility] still can't confirm a bed. Spoke with patient's son to obtain alternate facility choices as patient is a bit confused and hesitant to go to rehab.
Patient's son stated that he would like referrals sent to local facilities: [facility], [facility]. Will send referrals and try to obtain authorization.
Plan: Case management will continue to follow and assist with discharge planning. Transfer to [facility] if bed, or other local [facility] facility if bed not available.
[2024-01-24] MEDS: LOVENOX 30 MG SC (17:10)
--- NOTE | 2024-01-24 19:10 | PTCARENOTE ---
call placed to Carlos, son at [phone]. Carlos updated on pts status and disposition, also informed of the fall pt had today.
[2024-01-24] MEDS: COREG 6.25 MG PO (21:11)
[2024-01-24] MEDS: LIPITOR 40 MG PO (21:11)
[2024-01-24] MEDS: PROTONIX 40 MG PO (21:11)
[2024-01-24] MEDS: MELATONIN 3 MG PO (21:12)
[2024-01-24 23:19] VITALS: BP 122/47
--- NOTE | 2024-01-25 03:38 | DOWNTIME ---
There was a [employer] Downtime on 01/25/2024 from 0100 to 01/25/2024 at 0337. Downtime documentation of patient's care, including medication administrations, has been reconciled in the electronic record per guidelines. Refer to the
patient's paper chart under the miscellaneous tab to see printed paper medication records and downtime forms.
[2024-01-25 07:00] VITALS: BP 131/51
[2024-01-25] MEDS: VITAMIN B-12 1000 MCG PO (07:40)
[2024-01-25] MEDS: EFFEXOR 75 MG PO ×2 (07:40→20:17)
[2024-01-25] MEDS: LOW STRENGTH ASPIRIN 81 MG PO (07:40)
[2024-01-25] MEDS: FEOSOL 325 MG PO (07:40)
[2024-01-25] MEDS: FOLVITE 1 MG PO (07:40)
[2024-01-25] MEDS: DESENEX/MITRAZOL/ZEASORB 1 APPLIC TOPICAL ×2 (07:43→20:17)
[2024-01-25] MEDS: COREG 12.5 MG PO (07:43)
[2024-01-25 11:00] VITALS: BMI 27.2
--- NOTE | 2024-01-25 11:17 | CM ---
Received notification from Ophelia at [facility] who stated that she will have a bed for patient tomorrow. NPI# for [facility], [id number] and Dr. Michael Bond, [id number].
Placed a call to [facility], and spoke with a field service representative named Hailey who took initial information about patient and issued reference # [id number].
Faxed all clinical to [phone].
Will await determination and report back to Demetria in admissions.
Plan: Case management will continue to follow and assist with discharge planning. Hopeful auth so patient can transfer to [facility] for Skilled before she goes back to her apartment.
--- NOTE | 2024-01-25 11:28 | W.PN.HOSP.TC ---
Today's Communication/Plan
-
await placement
Check labs
Assessment / Plan
Assessment / Plan
Gen-awake, alert, NAD
HEENT-NC, AT, anicteric, clear oral mm
Neck-supple
CV-reg, no M, +S1/S2
Lungs-clear B/L
Abd-soft, NT, ND
Ext-chronic B/L LE edema
Musculoskeletal-no cyanosis, clubbing
Skin-warm and dry
Neuro-grossly non-focal
Psych-calm, cooperative
SIRS-present on admission. No further fevers. Looks nontoxic. Leukocytosis resolved. Blood cultures negative so far, urine culture no significant growth. Received 1 dose of ceftriaxone in the emergency room. Currently off antibiotics.
Ambulatory dysfunction, falls -generalized weakness. Differential diagnosis includes underlying infection versus deconditioning versus other causes such as volume depletion. Not significantly orthostatic. on fall precautions
Mild traumatic rhabdomyolysis -should improve with IV fluids. CPK downtrended. Encourage po intake
Chronic heart failure reduced EF -stable.
Essential hypertension -stable.
Hyperlipidemia -on atorvastatin.
Alzheimer's dementia
GERD
Chronic microcytic anemia -history of iron deficiency, thalassemia minor. Hemoglobin stable at 8.2. Suspect baseline hemoglobin 8.5-9.5. Suspect hemodilution. Doubt bleeding. Monitor for now. No luminal bleeding noted so far. Check h/h.
DNR -confirmed with patient.
Dispo -medically stable for discharge to SNF. Check labs.
Anticipated Discharge: Today
Subjective/Interval History
-
Date of Service: January 25, 2024
Pt with fall in bathroom yesterday
bed alarm did not work
denies hitting her head. Denies any facial pain or neck pain but denies any extremity pain
Resting in bed comfortably
Denies any other complaints.
Objective Data
-
Vital Signs:
Vital Signs
Temp Pulse Resp BP Pulse Ox
97.6 F 70 17 131/51 95
01/25/24 07:00 01/25/24 07:43 01/25/24 07:00 01/25/24 07:43 01/25/24 07:00
I&O
01/24/24 01/25/24 01/26/24
06:59 06:59 06:59
Intake Total 1460 / 1460 890 / 890
Balance 1460 / 1460 890 / 890
[2024-01-25 12:06] VITALS: BP 134/67; PULSE 68; O2SAT 92
[2024-01-25 12:12] VITALS: BP 132/57; PULSE 59; O2SAT 98
[2024-01-25 12:14] LABS: % Basophils 0.6 % (0-2); % Eosinophils 1.4 % (0-6); % Immature Granulocytes 0.8 % (0-0.5); % Monocytes 8.5 % (1.7-9.3); % Neutrophils 69.7 % (42.2-75.2); Absolute Eosinophils 0.1 10^3/uL (0-0.7); Absolute Immature Granulocytes 0.1 10^3/uL (0-0.05); Absolute Lymphocytes 1.4 10^3/uL (1.2-3.4); Absolute Monocytes 0.6 10^3/uL (0.1-0.6); Absolute Neutrophils 4.9 10^3/uL (1.4-6.5); Hematocrit 23.2 % (37.0-47.0); Hemoglobin 7.2 g/dL (12.0-16.0); Mean Corpuscular Hgb 19.5 pg (27.0-31.0); Mean Corpuscular Volume 62.7 fL (81.0-99.0); Mean Platelet Volume 10.8 fL (7.4-10.4); Nucleated Red Blood Cells % 0 %; Platelet Count 310 10^3/uL (130-400); Red Cell Dist. Width 16.3 % (11.5-14.5); White Blood Cell Count 7.1 10^3/uL (4.8-10.8)
[2024-01-25 12:27] LABS: Blood Urea Nitrogen 10 mg/dl (7-17); Calcium 8.3 mg/dl (8.4-10.2); Carbon Dioxide 26 mmol/L (22-30); Chloride 105 mmol/L (98-107); Estimated Creatinine Clearance 51 ml/min; Glucose 93 mg/dl (70-99); Potassium 3.4 mmol/L (3.5-5.1); Sodium 136 mmol/L (135-145); eGFR > 60.00
[2024-01-25] MEDS: KCL ELIXIR 40 MEQ PO (12:41)
[2024-01-25 15:00] VITALS: BP 131/74
[2024-01-25 17:02] VITALS: BP 117/52
[2024-01-25] MEDS: LOVENOX 30 MG SC (17:54)
[2024-01-25] MEDS: COREG 6.25 MG PO (22:00)
[2024-01-25] MEDS: LIPITOR 40 MG PO (22:00)
[2024-01-25] MEDS: MELATONIN 3 MG PO (22:02)
[2024-01-25] MEDS: PROTONIX 40 MG PO (22:02)
[2024-01-25 22:10] VITALS: BP 134/66
[2024-01-26 07:00] LABS: % Basophils 0.5 % (0-2); % Eosinophils 1.6 % (0-6); % Immature Granulocytes 1.3 % (0-0.5); % Lymphocytes 19.4 % (20.5-51.1); % Monocytes 9.2 % (1.7-9.3); Absolute Eosinophils 0.1 10^3/uL (0-0.7); Absolute Immature Granulocytes 0.1 10^3/uL (0-0.05); Absolute Lymphocytes 1.4 10^3/uL (1.2-3.4); Absolute Monocytes 0.7 10^3/uL (0.1-0.6); Hematocrit 23.7 % (37.0-47.0); Hemoglobin 7.3 g/dL (12.0-16.0); Mean Corp Hgb Conc. 30.8 g/dL (33.0-37.0); Mean Corpuscular Hgb 19.6 pg (27.0-31.0); Mean Corpuscular Volume 63.5 fL (81.0-99.0); Mean Platelet Volume 10.9 fL (7.4-10.4); Nucleated Red Blood Cells % 0 %; Platelet Count 311 10^3/uL (130-400); Red Blood Cell Count 3.73 10^6/uL (4.20-5.40); Red Cell Dist. Width 16.4 % (11.5-14.5); White Blood Cell Count 7.4 10^3/uL (4.8-10.8)
[2024-01-26 07:36] LABS: Blood Urea Nitrogen 11 mg/dl (7-17); Calcium 8.5 mg/dl (8.4-10.2); Carbon Dioxide 25 mmol/L (22-30); Chloride 107 mmol/L (98-107); Estimated Creatinine Clearance 51 ml/min; Glucose 96 mg/dl (70-99); Potassium 3.6 mmol/L (3.5-5.1); Sodium 137 mmol/L (135-145); eGFR > 60.00
[2024-01-26] MEDS: VITAMIN B-12 1000 MCG PO (07:39)
[2024-01-26] MEDS: COREG 12.5 MG PO (07:39)
[2024-01-26] MEDS: EFFEXOR 75 MG PO (07:39)
[2024-01-26] MEDS: FEOSOL 325 MG PO (07:39)
[2024-01-26] MEDS: FOLVITE 1 MG PO (07:39)
[2024-01-26] MEDS: LOW STRENGTH ASPIRIN 81 MG PO (07:39)
[2024-01-26] MEDS: DESENEX/MITRAZOL/ZEASORB 1 APPLIC TOPICAL (07:40)
[2024-01-26 07:44] VITALS: BP 138/64
[2024-01-26 08:43] VITALS: BMI 29.2
--- NOTE | 2024-01-26 09:55 | CM ---
Addendum entered by Tamanna Koehler [facility] 01/26/24 16:13:
Received call from [facility] who confirmed bed for today. #For report [phone] and fax# [phone].
Placed a call to [facility] and spoke with a automotive sales representative named, Audelia, who issued new auth for [facility] [id number] NRD 01/30/24
Called Brandon at [facility] to update with auth.
Will complete medical necessity and transfer sheet.
Addendum entered by Tamanna Koehler [facility] 01/26/24 15:09:
Received return call from Brandon, who stated that he will review patient's referral and call right back with determination.
Addendum entered by Tamanna Koehler [facility] 01/26/24 14:48:
Placed a call to [facility] to follow up on determination. Spoke with a automotive sales representative named, Alena who confirmed that patient has been approved for 5 days skilled. Start of care date, 01/25-01/29. Auth# [id number].
Reviewed referrals that were sent by allscripts to local facilities and both [facility] and [facility] were able to offer beds. Placed a call to Ann in admissions at both of these facilities and was advised that [facility] has a bed. Will
have to change NPI at [facility] as the approval was based on [id number] [id number]
#for report [phone] and fax# [phone].
Placed a call to patient's son, Carlos to update. Carlos stated that he would like for patient to transfer to [facility] if possible. Placed a call to [facility] [phone] to determine their bed status however there was no answer.
Will advise patient's son that as [facility] was also a selected facility and can offer a bed today, transfer to there is the option as patient has been medically cleared for a couple of days and attending has just been awaiting insurance
approval.
Original Note:
Received a call from Karie from [facility] who stated that she never received faxed clinical. Faxed all new clinical to [phone]. #For [facility] [phone].
Plan: Case management will continue to follow and assist with discharge planning. Hopeful auth so that patient can be transferred to [facility] when medically stable.
--- NOTE | 2024-01-26 11:05 | W.PN.HOSP.TC ---
Addendum entered and electronically signed by Chaitanya Yoon MD 01/26/24 11:10:
Hypokalemia-replete/monitor
Original Note:
Today's Communication/Plan
-
await placement
Assessment / Plan
Assessment / Plan
Gen-awake, alert, NAD
HEENT-NC, AT, anicteric, clear oral mm
Neck-supple
CV-reg, no M, +S1/S2
Lungs-clear B/L
Abd-soft, NT, ND
Ext-chronic B/L LE edema
Musculoskeletal-no cyanosis, clubbing
Skin-warm and dry
Neuro-grossly non-focal
Psych-calm, cooperative
SIRS-present on admission. No further fevers. Looks nontoxic. Leukocytosis resolved. Blood cultures negative so far, urine culture no significant growth. Received 1 dose of ceftriaxone in the emergency room. Currently off antibiotics.
Ambulatory dysfunction, falls -generalized weakness. Differential diagnosis includes underlying infection versus deconditioning versus other causes such as volume depletion. Not significantly orthostatic. on fall precautions
Mild traumatic rhabdomyolysis -should improve with IV fluids. CPK downtrended. Encourage po intake
Chronic heart failure reduced EF -stable.
Essential hypertension -stable.
Hyperlipidemia -on atorvastatin.
Alzheimer's dementia
GERD
Chronic microcytic anemia -history of iron deficiency, thalassemia minor. Suspect hemodilution. Doubt bleeding. Monitor for now. No luminal bleeding noted so far. Hgb 7.3 Trend for now. Did received IVF earlier.
DNR -confirmed with patient.
Dispo -medically stable for discharge to SNF.
Anticipated Discharge: Today
Subjective/Interval History
-
Date of Service: January 26, 2024
watching tv
denies pain
Objective Data
-
Labs:
Laboratory Results
01/26/24
06:16
WBC 7.4
Hgb 7.3 L
Hct 23.7 L
Plt Count 311
Sodium 137
Potassium 3.6
Chloride 107
Carbon Dioxide 25
BUN 11
Creatinine 0.6
Glucose 96
Calcium 8.5
Vital Signs:
Vital Signs
Temp Pulse Resp BP Pulse Ox
98.6 F 63 18 138/64 95
01/26/24 07:44 01/26/24 07:44 01/26/24 07:44 01/26/24 07:44 01/26/24 07:44
I&O
01/25/24 01/26/24 01/27/24
06:59 06:59 06:59
Intake Total 890 / 890 1500 / 1500
Balance 890 / 890 1500 / 1500
[2024-01-26 15:33] VITALS: BP 148/72
--- NOTE | 2024-01-26 15:47 | W.DCSUMMARY ---
Discharge Summary
Discharge Data
Date of Admission: 01/19/24
Date of Discharge: 01/26/24
-
Pending Results: No
Hospital Course
88-year-old female past medical history of chronic microcytic anemia suspected thalassemia minor. Iron deficiency, GERD, dementia Alzheimer, hyperlipidemia, hypertension, chronic HFrEF, ambulatory dysfunction was present with generalized weakness.
Patient had positive SIRS but no source of infection. Leukocytosis resolved. Blood cultures negative. Urine culture negative. Received IV fluids. Patient was eval by physical and Occupational Therapy. CPK down trended. Patient remained
afebrile and hemodynamically stable without antibiotics. Chest x-ray was negative for acute infiltrate. Hemoglobin was trended and no need for transfusion. Patient was eval by PT and OT. Patient be discharged to halfway facility.
Discharge Plan
-
Patient Disposition: Detention/SNF
Discharge Diagnosis/Procedures: SIRS, ambulatory dysfunction, anemia
Condition: Good
Diet: Regular
Activity: With assistance
Driving Restrictions: No driving
Bathing Restrictions: None
Blood Work: CBC and bmp in 1 week with primary doctor
Referrals:
Sherie Jefferson MD [Family Provider] - in less than 1 week
Prescriptions:
Continued
pantoprazole 40 MG tablet,delayed release (DR/EC)
40 mg PO HS
carvedilol 6.25 mg tablet
6.25 mg PO HS
carvedilol 6.25 mg tablet
12.5 mg PO DAILY
melatonin 3 mg Tablet
3 mg PO HS
acetaminophen 500 mg Tablet
1,000 mg PO Q8HPRN PRN (Reason: mild pain/temp>100)
cyanocobalamin (vitamin B-12) 500 mcg Tablet
1,000 mcg PO DAILY
ferrous sulfate 325 mg (65 mg iron) Tablet
325 mg PO DAILY
calcium carbonate 500 mg calcium (1,250 mg) Tablet,Chewable
500 mg PO Q6HPRN PRN (Reason: nausea)
Artificial Tears (PF) Dropperette
1 drp BOTH EYES BIDPRN PRN (Reason: dry eyes)
guaifenesin [Mucinex] 600 mg Tablet Extended Release 12hr
600 mg PO [id number] PRN (Reason: congestion)
atorvastatin 40 MG tablet
40 mg PO HS
docusate sodium 100 MG capsule
100 mg PO [id number] PRN (Reason: constipation)
venlafaxine 75 mg Tablet
75 mg PO BID
aspirin 81 MG tablet,chewable
81 mg PO DAILY
folic acid 1 mg tablet
1 mg PO DAILY
Discharge Orders:
Discharge Patient (As Directed); Ordered 01/26/24
Ordered By: Chaitanya Yoon
Discharge Date and Time
Discharge Date/Time: 01/26/24 19:35
Print Language: ICELANDIC
[2024-01-26] MEDS: LOVENOX 30 MG SC (17:09)
--- NOTE | 2024-01-26 19:41 | PTCARENOTE ---
Pt discharged to [facility] via EMS with all belongings.
== END 2024-01-26 19:35 | DRG 92 ==
LOC: 3 WEST ACU 15:18
PROVIDERS: Physician Assistant; ADMITTING PHYSICIAN Hospitalist; ATTENDING PHYSICIAN Hospitalist; EMERGENCY PHYSICIAN Emergency Medicine; FAMILY PHYSICIAN Internal Medicine
DX: R26.89 Other abnormalities of gait and mobility (principal); I50.22 Chronic systolic (congestive) heart failure; R65.10 Systemic inflammatory response syndrome (SIRS) of non-infectious origin without acute organ dysfunction; T79.6XXA Traumatic ischemia of muscle, initial encounter; E78.5 Hyperlipidemia, unspecified; I11.0 Hypertensive heart disease with heart failure; G30.9 Alzheimer's disease, unspecified; F02.80 Dementia in other diseases classified elsewhere, unspecified severity, without behavioral disturbance, psychotic disturbance, mood disturbance, and anxiety; Z66 Do not resuscitate; K21.9 Gastro-esophageal reflux disease without esophagitis; D56.3 Thalassemia minor; D50.9 Iron deficiency anemia, unspecified; E87.6 Hypokalemia; R29.6 Repeated falls; I25.10 Atherosclerotic heart disease of native coronary artery without angina pectoris; N20.0 Calculus of kidney; M25.572 Pain in left ankle and joints of left foot; Z87.891 Personal history of nicotine dependence; Z79.82 Long term (current) use of aspirin; Z91.81 History of falling; W01.0XXA Fall on same level from slipping, tripping and stumbling without subsequent striking against object, initial encounter; D72.829 Elevated white blood cell count, unspecified; R50.9 Fever, unspecified; W19.XXXA Unspecified fall, initial encounter; Y92.231 Patient bathroom in hospital as the place of occurrence of the external cause
CPT/HCPCS: 51701; 70450; 71045; 73590; 73610; 80048; 80053; 81003; 81015; 82550; 82962; 83605; 85025; 86850; 86900; 86901; 87040; 87070; 87086; 87147; 93005; 96361; 96374; 97110; 97116; 97162; 97166; 97530; 97535; 99285

== ENCOUNTER → 2024-01-30 10:26 | Outpatient (REF) | payer OTHER, SELFPAY ==
[2024-01-30 11:21] LABS: Hematocrit 23.2 % (37.0-47.0); Hemoglobin 7.1 g/dL (12.0-16.0); Mean Corp Hgb Conc. 30.6 g/dL (33.0-37.0); Mean Corpuscular Hgb 19.5 pg (27.0-31.0); Mean Corpuscular Volume 63.7 fL (81.0-99.0); Mean Platelet Volume 11.6 fL (7.4-10.4); Platelet Count 280 10^3/uL (130-400); Red Blood Cell Count 3.64 10^6/uL (4.20-5.40); Red Cell Dist. Width 17.1 % (11.5-14.5)
[2024-01-30 11:39] LABS: Blood Urea Nitrogen 14 mg/dl (7-17); Carbon Dioxide 27 mmol/L (22-30); Chloride 106 mmol/L (98-107); Glucose 94 mg/dl (70-99); NT-proBNP 3560 pg/ml; Potassium 3.6 mmol/L (3.5-5.1); Sodium 138 mmol/L (135-145); eGFR > 60.00
== END ==
LOC: OLABP 10:26
PROVIDERS: ATTENDING PHYSICIAN Family Medicine
DX: T79.6XXD Traumatic ischemia of muscle, subsequent encounter (principal); D72.829 Elevated white blood cell count, unspecified; R65.10 Systemic inflammatory response syndrome (SIRS) of non-infectious origin without acute organ dysfunction; G30.9 Alzheimer's disease, unspecified; D63.8 Anemia in other chronic diseases classified elsewhere; I50.22 Chronic systolic (congestive) heart failure; I10 Essential (primary) hypertension
CPT/HCPCS: 36415; 80048; 83880; 85027

== ENCOUNTER → 2024-02-06 11:49 | Outpatient (REF) | payer OTHER, MEDICARE, SELFPAY ==
[2024-02-06 13:47] LABS: % Basophils 0.8 % (0-2); % Eosinophils 2.2 % (0-6); % Immature Granulocytes 0.3 % (0-0.5); % Lymphocytes 25.4 % (20.5-51.1); % Monocytes 11.6 % (1.7-9.3); % Neutrophils 59.7 % (42.2-75.2); Absolute Basophils 0.1 10^3/uL (0-0.2); Absolute Eosinophils 0.1 10^3/uL (0-0.7); Absolute Lymphocytes 1.6 10^3/uL (1.2-3.4); Absolute Monocytes 0.7 10^3/uL (0.1-0.6); Absolute Neutrophils 3.8 10^3/uL (1.4-6.5); Hematocrit 22.4 % (37.0-47.0); Mean Corp Hgb Conc. 29.9 g/dL (33.0-37.0); Mean Corpuscular Hgb 19.3 pg (27.0-31.0); Mean Corpuscular Volume 64.4 fL (81.0-99.0); Mean Platelet Volume 11.4 fL (7.4-10.4); Nucleated Red Blood Cells % 0 %; Platelet Count 342 10^3/uL (130-400); Red Blood Cell Count 3.48 10^6/uL (4.20-5.40); Red Cell Dist. Width 17.7 % (11.5-14.5); White Blood Cell Count 6.4 10^3/uL (4.8-10.8)
[2024-02-06 13:57] LABS: Blood Urea Nitrogen 16 mg/dl (7-17); Calcium 8.2 mg/dl (8.4-10.2); Carbon Dioxide 25 mmol/L (22-30); Chloride 109 mmol/L (98-107); Glucose 76 mg/dl (70-99); Potassium 3.4 mmol/L (3.5-5.1); Sodium 139 mmol/L (135-145); eGFR > 60.00
[2024-02-06 14:38] LABS: Hemoglobin 6.7 g/dL (12.0-16.0)
== END ==
LOC: OLABP 11:49
PROVIDERS: ATTENDING PHYSICIAN Family Medicine
DX: T79.6XXD Traumatic ischemia of muscle, subsequent encounter (principal); D72.829 Elevated white blood cell count, unspecified; R65.10 Systemic inflammatory response syndrome (SIRS) of non-infectious origin without acute organ dysfunction; G30.9 Alzheimer's disease, unspecified; D63.8 Anemia in other chronic diseases classified elsewhere; I50.22 Chronic systolic (congestive) heart failure; I10 Essential (primary) hypertension
CPT/HCPCS: 36415; 80048; 85025

== ENCOUNTER → 2024-02-07 11:26 | Outpatient (REF) | payer OTHER, MEDICARE, SELFPAY ==
[2024-02-07 13:25] LABS: % Eosinophils 2.4 % (0-6); % Immature Granulocytes 0.5 % (0-0.5); % Lymphocytes 28.4 % (20.5-51.1); % Monocytes 10.5 % (1.7-9.3); % Neutrophils 57.2 % (42.2-75.2); Absolute Basophils 0.1 10^3/uL (0-0.2); Absolute Eosinophils 0.1 10^3/uL (0-0.7); Absolute Lymphocytes 1.6 10^3/uL (1.2-3.4); Absolute Monocytes 0.6 10^3/uL (0.1-0.6); Absolute Neutrophils 3.3 10^3/uL (1.4-6.5); Hematocrit 23.6 % (37.0-47.0); Hemoglobin 7.2 g/dL (12.0-16.0); Mean Corp Hgb Conc. 30.5 g/dL (33.0-37.0); Mean Corpuscular Hgb 19.6 pg (27.0-31.0); Mean Corpuscular Volume 64.1 fL (81.0-99.0); Mean Platelet Volume 11.6 fL (7.4-10.4); Nucleated Red Blood Cells % 0 %; Platelet Count 348 10^3/uL (130-400); Red Blood Cell Count 3.68 10^6/uL (4.20-5.40); White Blood Cell Count 5.7 10^3/uL (4.8-10.8)
== END ==
LOC: OLABP 11:26
PROVIDERS: ATTENDING PHYSICIAN Family Medicine
DX: D72.829 Elevated white blood cell count, unspecified (principal); R65.10 Systemic inflammatory response syndrome (SIRS) of non-infectious origin without acute organ dysfunction; G30.9 Alzheimer's disease, unspecified; D63.8 Anemia in other chronic diseases classified elsewhere; I50.22 Chronic systolic (congestive) heart failure; I10 Essential (primary) hypertension
CPT/HCPCS: 36415; 85025

== ENCOUNTER → 2024-04-02 11:43 | Outpatient (REF) | payer MEDICARE, SELFPAY ==
[2024-04-02 13:42] LABS: % Basophils 0.2 % (0-2); % Eosinophils 1.5 % (0-6); % Immature Granulocytes 0.2 % (0-0.5); % Lymphocytes 31.1 % (20.5-51.1); % Monocytes 8.8 % (1.7-9.3); % Neutrophils 58.4 % (42.2-75.2); Absolute Eosinophils 0.1 10^3/uL (0-0.7); Absolute Lymphocytes 1.4 10^3/uL (1.2-3.4); Absolute Monocytes 0.4 10^3/uL (0.1-0.6); Absolute Neutrophils 2.7 10^3/uL (1.4-6.5); Hematocrit 27.9 % (37.0-47.0); Hemoglobin 8.9 g/dL (12.0-16.0); Mean Corp Hgb Conc. 31.8 g/dL (33.0-37.0); Mean Corpuscular Hgb 20.1 pg (27.0-31.0); Mean Corpuscular Volume 63.3 fL (81.0-99.0); Nucleated Red Blood Cells % 0 %; Platelet Count 170 10^3/uL (130-400); Red Blood Cell Count 4.42 10^6/uL (4.20-5.40); Red Cell Dist. Width 16.8 % (11.5-14.5); White Blood Cell Count 4.6 10^3/uL (4.8-10.8)
[2024-04-02 14:13] LABS: Blood Urea Nitrogen 20 mg/dl (7-17); Calcium 9.2 mg/dl (8.4-10.2); Carbon Dioxide 23 mmol/L (22-30); Chloride 108 mmol/L (98-107); Glucose 81 mg/dl (70-99); Potassium 3.5 mmol/L (3.5-5.1); Sodium 140 mmol/L (135-145); eGFR > 60.00
== END ==
LOC: OLABWPC 11:43
PROVIDERS: ATTENDING PHYSICIAN Internal Medicine
DX: E78.5 Hyperlipidemia, unspecified (principal); I42.9 Cardiomyopathy, unspecified; I50.23 Acute on chronic systolic (congestive) heart failure
CPT/HCPCS: 36415; 80048; 85025

== ENCOUNTER → 2024-05-02 10:25 | Outpatient (REF) | payer MEDICARE, SELFPAY ==
[2024-05-02 12:38] LABS: % Basophils 0.1 % (0-2); % Eosinophils 1.8 % (0-6); % Immature Granulocytes 0.4 % (0-0.5); % Monocytes 7.5 % (1.7-9.3); % Neutrophils 58.2 % (42.2-75.2); Absolute Eosinophils 0.1 10^3/uL (0-0.7); Absolute Lymphocytes 2.1 10^3/uL (1.2-3.4); Absolute Monocytes 0.5 10^3/uL (0.1-0.6); Absolute Neutrophils 3.9 10^3/uL (1.4-6.5); Hematocrit 32.1 % (37.0-47.0); Hemoglobin 9.9 g/dL (12.0-16.0); Mean Corp Hgb Conc. 30.8 g/dL (33.0-37.0); Mean Corpuscular Hgb 19.4 pg (27.0-31.0); Mean Corpuscular Volume 62.8 fL (81.0-99.0); Nucleated Red Blood Cells % 0 %; Platelet Count 244 10^3/uL (130-400); Red Blood Cell Count 5.11 10^6/uL (4.20-5.40); Red Cell Dist. Width 17.8 % (11.5-14.5); White Blood Cell Count 6.7 10^3/uL (4.8-10.8)
== END ==
LOC: OLABWPC 10:25
PROVIDERS: ATTENDING PHYSICIAN Nurse Practitioner Family
DX: D64.9 Anemia, unspecified (principal)
CPT/HCPCS: 36415; 85025

== ENCOUNTER → 2024-05-08 12:37 | Outpatient (REF) | payer MEDICARE, SELFPAY ==
[2024-05-08 16:37] LABS: ALT (SGPT) 22 U/L (0-35); AST (SGOT) 32 U/L (14-36); Albumin 3.7 g/dl (3.5-5.0); Alkaline Phosphatase 42 U/L (38-126); Blood Urea Nitrogen 19 mg/dl (7-17); Calcium 9.3 mg/dl (8.4-10.2); Carbon Dioxide 22 mmol/L (22-30); Chloride 109 mmol/L (98-107); Glucose 83 mg/dl (70-99); HDL Cholesterol 80 mg/dl; LDL Cholesterol, Calculated 52 mg/dl; Potassium 4.4 mmol/L (3.5-5.1); Sodium 142 mmol/L (135-145); Total Bilirubin 0.7 mg/dl (0.2-1.3); Total Cholesterol 145 mg/dl (50-199); Total Protein 6.3 g/dl (6.3-8.2); Triglyceride 65 mg/dl (10-149); Very Low Density Lipoprotein 13 mg/dl (0-30); eGFR > 60.00
[2024-05-08 17:06] LABS: TSH 3.82 uIU/ml (0.47-4.68)
[2024-05-08 18:10] LABS: % Basophils 0.7 % (0-2); % Eosinophils 1.8 % (0-6); % Immature Granulocytes 0.9 % (0-0.5); % Lymphocytes 28.9 % (20.5-51.1); % Monocytes 9.1 % (1.7-9.3); % Neutrophils 58.6 % (42.2-75.2); Absolute Eosinophils 0.1 10^3/uL (0-0.7); Absolute Immature Granulocytes 0.1 10^3/uL (0-0.05); Absolute Lymphocytes 1.7 10^3/uL (1.2-3.4); Absolute Monocytes 0.5 10^3/uL (0.1-0.6); Absolute Neutrophils 3.3 10^3/uL (1.4-6.5); Hematocrit 29.5 % (37.0-47.0); Hemoglobin 9.3 g/dL (12.0-16.0); Mean Corp Hgb Conc. 31.5 g/dL (33.0-37.0); Mean Corpuscular Hgb 19.4 pg (27.0-31.0); Mean Corpuscular Volume 61.5 fL (81.0-99.0); Nucleated Red Blood Cells % 0 %; Red Cell Dist. Width 17.9 % (11.5-14.5); White Blood Cell Count 5.7 10^3/uL (4.8-10.8)
[2024-05-08 19:06] LABS: Platelet Count 174 10^3/uL (130-400)
== END ==
LOC: OLABWPC 12:37
PROVIDERS: ATTENDING PHYSICIAN Internal Medicine
DX: D64.9 Anemia, unspecified (principal); K21.9 Gastro-esophageal reflux disease without esophagitis; E78.5 Hyperlipidemia, unspecified; I50.20 Unspecified systolic (congestive) heart failure
CPT/HCPCS: 36415; 80053; 80061; 84443; 85025

== ENCOUNTER → 2024-08-16 10:34 | Outpatient (REF) | payer MEDICARE, SELFPAY ==
[2024-08-16 11:33] LABS: % Basophils 0.2 % (0-2); % Eosinophils 2.1 % (0-6); % Immature Granulocytes 0.3 % (0-0.5); % Monocytes 7.9 % (1.7-9.3); % Neutrophils 61.5 % (42.2-75.2); Absolute Eosinophils 0.1 10^3/uL (0-0.7); Absolute Lymphocytes 1.7 10^3/uL (1.2-3.4); Absolute Monocytes 0.5 10^3/uL (0.1-0.6); Absolute Neutrophils 3.7 10^3/uL (1.4-6.5); Hematocrit 31.9 % (37.0-47.0); Hemoglobin 9.5 g/dL (12.0-16.0); Mean Corp Hgb Conc. 29.8 g/dL (33.0-37.0); Mean Corpuscular Hgb 20.1 pg (27.0-31.0); Mean Corpuscular Volume 67.6 fL (81.0-99.0); Nucleated Red Blood Cells % 0 %; Platelet Count 221 10^3/uL (130-400); Red Blood Cell Count 4.72 10^6/uL (4.20-5.40); White Blood Cell Count 6.1 10^3/uL (4.8-10.8)
[2024-08-16 11:42] LABS: ALT (SGPT) 15 U/L (0-35); AST (SGOT) 26 U/L (14-36); Albumin 3.9 g/dl (3.5-5.0); Alkaline Phosphatase 61 U/L (38-126); Blood Urea Nitrogen 20 mg/dl (7-17); Carbon Dioxide 26 mmol/L (22-30); Chloride 107 mmol/L (98-107); Glucose 88 mg/dl (70-99); Potassium 4.8 mmol/L (3.5-5.1); Sodium 143 mmol/L (135-145); Total Bilirubin 0.7 mg/dl (0.2-1.3); Total Protein 6.8 g/dl (6.3-8.2); eGFR > 60.00
== END ==
LOC: OLABWPC 10:34
PROVIDERS: ATTENDING PHYSICIAN Internal Medicine
DX: D64.9 Anemia, unspecified (principal); I42.9 Cardiomyopathy, unspecified
CPT/HCPCS: 36415; 80053; 85025

== ENCOUNTER → 2024-09-17 09:51 | Outpatient (REF) | payer MEDICARE, SELFPAY ==
[2024-09-17 11:33] LABS: Blood Urea Nitrogen 18 mg/dl (7-17); Carbon Dioxide 26 mmol/L (22-30); Chloride 105 mmol/L (98-107); Glucose 81 mg/dl (70-99); Potassium 4.8 mmol/L (3.5-5.1); Sodium 140 mmol/L (135-145); eGFR > 60.00
[2024-09-17 11:43] LABS: % Basophils 0.2 % (0-2); % Immature Granulocytes 0.5 % (0-0.5); % Lymphocytes 30.9 % (20.5-51.1); % Monocytes 10.2 % (1.7-9.3); % Neutrophils 56.4 % (42.2-75.2); Absolute Eosinophils 0.1 10^3/uL (0-0.7); Absolute Lymphocytes 1.7 10^3/uL (1.2-3.4); Absolute Monocytes 0.6 10^3/uL (0.1-0.6); Absolute Neutrophils 3.2 10^3/uL (1.4-6.5); Hematocrit 27.5 % (37.0-47.0); Hemoglobin 8.3 g/dL (12.0-16.0); Mean Corp Hgb Conc. 30.9 g/dL (33.0-37.0); Mean Corpuscular Hgb 20.1 pg (27.0-31.0); Mean Corpuscular Volume 65.1 fL (81.0-99.0); Nucleated Red Blood Cells % 0.4 %; Platelet Count 201 10^3/uL (130-400); Red Blood Cell Count 4.18 10^6/uL (4.20-5.40); Red Cell Dist. Width 16.8 % (11.5-14.5); White Blood Cell Count 5.7 10^3/uL (4.8-10.8)
== END ==
LOC: OLABWPC 09:51
PROVIDERS: ATTENDING PHYSICIAN Nurse Practitioner Family
DX: M19.90 Unspecified osteoarthritis, unspecified site (principal); E78.5 Hyperlipidemia, unspecified; I25.10 Atherosclerotic heart disease of native coronary artery without angina pectoris; I50.23 Acute on chronic systolic (congestive) heart failure; I42.9 Cardiomyopathy, unspecified
CPT/HCPCS: 36415; 80048; 85025

== ENCOUNTER → 2024-09-19 20:30 | Outpatient (REF) | payer MEDICARE, SELFPAY ==
[2024-09-20 12:44] LABS: Urine Albumin 2+ (Neg - Trace); Urine Bilirubin Negative (Negative); Urine Character Clear (Clear); Urine Color Yellow; Urine Glucose Negative (Negative); Urine Ketone Negative (Negative); Urine Leukocyte 3+ (Negative); Urine Nitrite Negative (Negative); Urine Occult Blood 2+ (Negative); Urine Specific Gravity 1.015 (<1.030); Urine Urobilinogen Negative (Neg - 1+)
[2024-09-20 13:58] LABS: Urine Squamous Cell >30 /LPF (Few); Urine Urothelial Cell 0-2 /LPF (FEW)
[2024-09-20 14:00] LABS: Urine Bacteria Moderate (Negative); Urine White Cell 40-50 /HPF (0-5)
== END ==
LOC: OLABWPC 20:30
PROVIDERS: ATTENDING PHYSICIAN Internal Medicine
DX: R30.0 Dysuria (principal)
CPT/HCPCS: 81003; 81015; 87086

== ENCOUNTER → 2024-09-24 21:00 | Outpatient (REF) | payer MEDICARE, SELFPAY ==
[2024-09-25 12:03] LABS: Urine Albumin 2+ (Neg - Trace); Urine Bilirubin Negative (Negative); Urine Character Cloudy (Clear); Urine Color Yellow; Urine Glucose Negative (Negative); Urine Ketone Negative (Negative); Urine Leukocyte 3+ (Negative); Urine Nitrite Negative (Negative); Urine Occult Blood 4+ (Negative); Urine Specific Gravity 1.015 (<1.030); Urine Urobilinogen Negative (Neg - 1+)
[2024-09-25 12:23] LABS: Urine Calcium Oxalate Crystals Present; Urine Squamous Cell 16-20 /LPF (Few)
[2024-09-25 12:24] LABS: Urine Bacteria Many (Negative); Urine White Cell 21-25 /HPF (0-5)
== END ==
LOC: OLABWPC 21:00
PROVIDERS: ATTENDING PHYSICIAN Internal Medicine
DX: R30.0 Dysuria (principal)
CPT/HCPCS: 81003; 81015; 87086

== ENCOUNTER → 2024-11-19 12:07 | Outpatient (REF) | payer MEDICARE, SELFPAY ==
[2024-11-19 15:06] LABS: HDL Cholesterol 66 mg/dl; LDL Cholesterol, Calculated 54 mg/dl; Total Cholesterol 130 mg/dl (50-199); Triglyceride 51 mg/dl (10-149); Very Low Density Lipoprotein 10 mg/dl (0-30)
== END ==
LOC: OLABWPC 12:07
PROVIDERS: ATTENDING PHYSICIAN Internal Medicine
DX: E78.5 Hyperlipidemia, unspecified (principal)
CPT/HCPCS: 36415; 80061

== ENCOUNTER → 2025-02-05 10:39 | Outpatient (REF) | payer MEDICARE, SELFPAY ==
[2025-02-05 11:47] LABS: ALT (SGPT) 21 U/L (0-35); AST (SGOT) 24 U/L (14-36); Albumin 3.8 g/dl (3.5-5.0); Alkaline Phosphatase 53 U/L (38-126); Blood Urea Nitrogen 18 mg/dl (7-17); Calcium 8.8 mg/dl (8.4-10.2); Carbon Dioxide 24 mmol/L (22-30); Chloride 113 mmol/L (98-107); Glucose 84 mg/dl (70-99); Hematocrit 29.2 % (37.0-47.0); Hemoglobin 9.0 g/dL (12.0-16.0); Mean Corp Hgb Conc. 30.8 g/dL (33.0-37.0); Mean Corpuscular Volume 65.6 fL (81.0-99.0); Nucleated Red Blood Cells % 0 %; Platelet Count 184 10^3/uL (130-400); Potassium 4.8 mmol/L (3.5-5.1); Red Cell Dist. Width 16.1 % (11.5-14.5); Sodium 142 mmol/L (135-145); Total Protein 6.4 g/dl (6.3-8.2); eGFR > 60.00
== END ==
LOC: OLABWHC 10:39
PROVIDERS: ATTENDING PHYSICIAN Internal Medicine
DX: D64.9 Anemia, unspecified (principal); K21.9 Gastro-esophageal reflux disease without esophagitis; E78.5 Hyperlipidemia, unspecified; I50.20 Unspecified systolic (congestive) heart failure
CPT/HCPCS: 36415; 80053; 85025